=== PATIENT | female | born 1955 | race Caucasian/White ===

== ENCOUNTER → 2017-10-26 17:30 | Outpatient (CLI) | payer OTHER, SELFPAY | PROVIDERS: Family Provider Family Medicine; PCP Family Medicine; Visit Provider Family Medicine | DX: Z12.31 Encounter for screening mammogram for malignant neoplasm of breast (principal) | CPT/HCPCS: 77063; 77067 ==

== ENCOUNTER → 2018-12-08 17:00 | Outpatient (CLI) | payer OTHER, SELFPAY ==
[2018-12-13 13:49] LABS: HPV HC, High Risk Negative (Negative)
== END ==
PROVIDERS: Family Provider Family Medicine; PCP Family Medicine; Visit Provider Family Medicine
DX: Z12.4 Encounter for screening for malignant neoplasm of cervix (principal)
CPT/HCPCS: 87624; 88175; G0145

== ENCOUNTER → 2018-12-20 16:23 | Outpatient (CLI) | payer OTHER, SELFPAY ==
--- NOTE | 2018-12-20 16:29 | BI_ITS ---
BILATERAL DIGITAL MAMMOGRAM Mediolateraloblique and craniocaudal views demonstrate no evidence of dominant parenchymal masses. No cluster of microcalcifications or architectural distortion is seen. No evidence of skin thickening is identified. There has been no significant change since 10/26/2017. Breast Density: The breast tissue is heterogeneously dense, which may obscure small masses. CAD was used to assist in final assessment. IMPRESSION: NORMAL MAMMOGRAM BILATERALLY. FINAL ASSESSMENT: BIRAD 1 (NEGATIVE) YEARLY MAMMOGRAM RECOMMENDED Approximately 10% of breast cancers are not detected by mammography. A normal mammogram should not delay biopsy of a clinically suspicious abnormality. Electronically Signed: Jairo Nieto, at 7:14 EDT Tel , Service support , BI/SCREEN MAMM (CAD) W/TRAVIS ROACH
== END ==
PROVIDERS: Family Provider Family Medicine; PCP Family Medicine; Referring Provider Family Medicine; Visit Provider Family Medicine
DX: Z12.31 Encounter for screening mammogram for malignant neoplasm of breast (principal)
CPT/HCPCS: 77063; 77067

== ENCOUNTER → 2019-01-16 14:19 | Outpatient (CLI) | payer OTHER, SELFPAY ==
[2019-01-16 13:49] VITALS: BMI 32.8
[2019-01-16 14:37] LABS: Hematocrit 43.1 % (37-47); Hemoglobin 13.7 g/dL (12.0-15.0); Mean Corp Hgb Conc 31.8 g/dL (32-36); Mean Corpuscular Hgb 29.3 pg (27.0-32.0); Mean Corpuscular Volume 92.1 fL (81-99); Mean Platelet Vol. 11.3 fl (6.2-12.0); Platelet Count 262 K/mm3 (150-450); RBC Distribution Width CV 12.9 % (11.6-14.6); RBC Distribution Width SD 43.2 fl (35.1-43.9); Red Blood Count 4.68 M/mm3 (4.2-5.4); White Blood Count 11.2 K/mm3 (4.4-11.0)
[2019-01-16 14:48] LABS: Prothrombin Time (Protime)PT. 12.8 SECONDS (11.7-14.9)
[2019-01-16 14:49] LABS: Partial Thromboplast Time 57.7 Seconds (24.1-36.2)
[2019-01-16 14:58] LABS: ALB/GLOB Ratio 0.9 RATIO (0.9-2.4); AST(SGOT) 16 U/L (15-37); Alanine Aminotransfer ALT/SGPT 35 U/L (13-56); Albumin, Serum 3.7 g/dL (3.2-5.0); Alkaline Phosphatase 55 U/L (45-117); Anion Gap 6 (5-15); BUN 16 mg/dL (7-18); BUN/Creat Ratio 22.3 RATIO (10-20); Calcium,Total 9.5 mg/dL (8.5-10.1); Chloride 104 mmol/L (98-107); Creatinine, Serum 0.72 mg/dL (0.55-1.02); EST Glomerular Filtration Rate 88 mL/min (>60); Est Glom Filt Rate - Afr Amer 106 mL/min (>60); Globulin 4.1 g/dL (2.2-4.2); Glucose 88 mg/dL (74-106); Potassium 3.9 mmol/L (3.5-5.1); Protein, Total 7.8 g/dL (6.4-8.2); Sodium Level 140 mmol/L (136-145)
== END ==
PROVIDERS: Family Provider Family Medicine; PCP Family Medicine; Referring Provider Surgery; Visit Provider Surgery
DX: D64.9 Anemia, unspecified (principal)
CPT/HCPCS: 36415; 80053; 85027; 85610; 85730

== ENCOUNTER → 2019-01-17 08:31 | Outpatient (CLI) | payer OTHER, SELFPAY ==
[2019-01-16 13:49] VITALS: BMI 32.8
[2019-01-17 09:10] LABS: Absolute Neutrophil Count 9.5 X10^3/uL (2.0-7.7); Basophil# 0.05 X10^3/uL; Basophil% 0.4 % (0-1); Eosinophil# 0.22 X10^3/uL; Eosinophils% 1.7 % (0-5); Hematocrit 44.8 % (37-47); Hemoglobin 14.2 g/dL (12.0-15.0); Lymphocyte % 16.5 % (19-41); Mean Corp Hgb Conc 31.7 g/dL (32-36); Mean Corpuscular Hgb 29.6 pg (27.0-32.0); Mean Corpuscular Volume 93.5 fL (81-99); Mean Platelet Vol. 11.7 fl (6.2-12.0); Monocyte% 6.3 % (0-10); NRBC Flagged by Analyzer 0 % (0-5); Neutrophil # 9.54 X10^3/uL (2.7-7.7); Neutrophil % 74.8 % (47-70); Platelet Count 258 K/mm3 (150-450); RBC Distribution Width CV 12.5 % (11.6-14.6); RBC Distribution Width SD 43.5 fl (35.1-43.9); Red Blood Count 4.79 M/mm3 (4.2-5.4); White Blood Count 12.8 K/mm3 (4.4-11.0)
[2019-01-17 09:28] LABS: ALB/GLOB Ratio 0.9 RATIO (0.9-2.4); AST(SGOT) 16 U/L (15-37); Alanine Aminotransfer ALT/SGPT 33 U/L (13-56); Albumin, Serum 3.6 g/dL (3.2-5.0); Alkaline Phosphatase 56 U/L (45-117); Anion Gap 6 (5-15); BUN 19 mg/dL (7-18); BUN/Creat Ratio 24.2 RATIO (10-20); Chloride 103 mmol/L (98-107); Cholesterol 181 mg/dL (200); Creatinine, Serum 0.78 mg/dL (0.55-1.02); EST Glomerular Filtration Rate 79 mL/min (>60); Est Glom Filt Rate - Afr Amer 96 mL/min (>60); Globulin 4.1 g/dL (2.2-4.2); Glucose 114 mg/dL (74-106); High Density Lipoprotein 39 mg/dL; Potassium 4.2 mmol/L (3.5-5.1); Protein, Total 7.7 g/dL (6.4-8.2); Sodium Level 140 mmol/L (136-145); Triglycerides 228 mg/dL; Very Low Density Lipoprotein 46 mg/dL (5-40)
== END ==
PROVIDERS: Family Provider Family Medicine; PCP Family Medicine; Referring Provider Family Medicine; Visit Provider Family Medicine
DX: Z00.00 Encounter for general adult medical examination without abnormal findings (principal); F32.9 Major depressive disorder, single episode, unspecified
CPT/HCPCS: 36415; 80053; 80061; 85025

== ENCOUNTER 2019-01-31 06:49 | Day surgery (SDC) | payer OTHER, SELFPAY ==
--- NOTE | 2019-01-16 03:16 | HP_ITS ---
Intake Vital Signs 01/16/19 Height 5 ft 7 in 01/16/19 Weight: 210 lb 01/16/19 Body Mass Index (BMI) 32.8 01/16/19 Blood Pressure 181/91 H 01/16/19 Blood Pressure Location Rt brachial 01/16/19 Blood Pressure Position Sitting 01/16/19 Respiratory Rate 18 Intake Visit Reasons: Rectal Bleeding/Hemorrhoids Tube Lancer Required: No Is patient in pain?: No Allergies Antihistamines - Alkylamine Allergy (Mild, Verified 01/16/19 13:51) Unknown Sulfa (Sulfonamide Antibiotics) Allergy (Mild, Verified 01/16/19 13:51) Other wool Allergy (Mild, Verified 01/16/19 13:51) Other Medications citalopram 20 mg tablet 30 mg PO DAILY tab 01/16/19 [History Confirmed 01/16/19] multivitamin tablet 1 tab PO DAILY 01/16/19 [History Confirmed 01/16/19] vit B12 50 mcg-iodine 75 mcg-mag 100 xn-bqox-eojxorox-herb 193 capsule cap PO cap 01/16/19 [History] PFSH Medical History Depression (Acute) Surgical History H/O thumb surgery (Acute) S/P hemorrhoidectomy (Acute) S/P tubal ligation (Acute) S/p bilateral carpal tunnel release (Acute) Family History Mother Heart disease Father Cancer Social History (Updated 01/16/19 @ 15:16 by Kishan Husain MD) Smoking Status: Former smoker alcohol intake: never HPI HPI HPI: RAKEL MARRERO, is a 63 F who presents to the office today for HPI HPI Surgical H&P: Yes HPI: RAKEL MARRERO, is a 63 F who presents to the office today for surgical consultation regarding excessive ongoing chronic voluminous rectal bleeding. The patient states that in [facility] in 1989 she had a hemorrhoidectomy. She states that ever since that she has had intermittent bouts of severe rectal bleeding sometimes with clots. She states that it is dietary induced but is not specific as to what foods may aggravate her situation. She states that the bleeding is aggravated by straining. Recently she has newly established primary care with Dr. Eileen Riggs. The patient is referred for surgical consultation and anticipated possible need for colonoscopy by Dr. Eileen Riggs and a written copy of my surgical consult recommendations will be returned to her recommendations were for the patient to get laboratory obtained and to pursue a colonoscopy. The patient however has not yet had the blood work obtained. She denies knowingly being anemic. But she states that she likely has not had laboratory obtained for multiple years. She states that when she bleeds it is excessive and that she has clots. She denies lightheadedness or syncope. She had initially hoped to pursue her colonoscopy via open access but with a history of voluminous rectal bleeding an appointment was made. The patient still remains very concerned that is soon as she starts taking the bowel prep that she will have excessive bleeding. She notes that she is not currently bleeding at this moment. ROS General General: No weight change, appetite, fatigue, colon cancer, breast cancer or weakness HEENT HEENT: No difficulty swallowing, eye injury, eye surgery, swollen glands or hoarseness Endo Endocrine: No thyroid disease, diabetes mellitus, thyroid cancer, Hair loss, heat intolerance or cold intolerance Skin Skin: No rash or changing moles Breast Breast: No left breast lump, right breast lump, nipple discharge, breast pain, abnormal mammogram, abnormal US or breast enlargement Musc Musculoskeletal: No back problems, arthritis, rheumatoid arthritis, gout or joint pain Cardio Cardiovascular: No murmur, pacemaker, heart disease, atrial fibrillation, high blood pressure, heart attack, heart stent, palpitations, shortness of breat with exertion or chest pain Psych Psychiatric: Yes depression; no anxiety or hearing voices Resp Respiratory: No shortness of breath, No sleep apnea, No cough, No COPD, No asthma, No emphysema, No wheezing Gastro Gastrointestinal: No abdominal pain, No nausea or vomiting, No diarrhea, No constipation, No blood in stool, No acid reflux, Yes hemorrhoids, No ulcers, No gallbladder problem, No black,tarry stools Jovanni Hematologic: No blood thinners, No blood disorders, No bleeding, No anemia, No blood clots Neuro Neurologic: No system reviewed and no additional complaints, except as docu, No as per HPI, No abnormal walking, No abnormal hearing, No abnormal movements, No abnormal speech, No behavioral changes, No burning sensations, No confusion, No seizure-like activity, No unsteadiness, No dizziness, No localized weakness, No frequent falls, No headache(s), No lack of coordination, No loss of vision, No memory loss, No numbness, No other visual disturbances, No radiating pain, No restless legs, No sensory deficit, No fainting, No tingling, No tremor(s), No weakness, No other Exam Const General: cooperative, healthy appearing, comfortable, no acute distress Nutritional Appearance: overweight Orientation: alert, awake [facility] Head: normal to inspection Chest Chest palpation & inspection: normal inspection of the chest Breast Palpation: No nipple discharge Resp Effort & Inspection: normal respiratory effort Auscultation: clear to auscultation bilaterally Cardio Rate: regular rate Rhythm: regular rhythm Heart Sounds: no murmurs GI Palpation: soft, no hepatosplenomegaly Auscultation: normal bowel sounds Neuro Cognition: normal cognition Extrem General: no calf tenderness bilaterally Psych Affect: normal affect Assessment & Plan Problems 1. Rectal bleeding K62.5 Plan Long-term history of rectal bleeding of undetermined etiology. The patient has not had a colonoscopy for perhaps almost 30 years. She notes bright red blood per rectum and clots. She has not yet pursued her laboratory. She is very concerned that the laxative bowel prep and clear liquids will aggravate her bowels causing excessive bleeding. I do recommend that she pursue laboratory and I recommend from this office a CMP and a CBC and coags. She of course will want to pursue the laboratory ordered per Dr. Eileen Riggs as well. I did briefly discussed with the patient possible hospitalization for observation in order to complete the bowel prep there but I made it clear that the bowel preparation will be a required component of trying to pursue a colonoscopy. Although the patient is relatively convinced that this is a simple post hemorrhoidectomy complication as noted above she has not had a colonoscopy for an extended period of time. I have discussed the technique, benefits, risks, alternatives. She has had an opportunity to ask and have questions answered. At this time we will try a 1 day outpatient clear liquid and routine MiraLAX bowel prep. She will notify me if she has excessive bleeding. She states that she will pursue the recommended laboratory. I appreciate the opportunity of assisting with her surgical care CC: Dr. Eileen Husain M.D., F.A.C.S. Orders Orders: Comprehensive Metabolic Profil Today D64.9 Partial Thromboplast Time Today D64.9 Prothrombin Time w/INR Today D64.9 CBC-Complete Blood Cnt No Diff Today D64.9 Coding Level of Care Code 48070 Diagnoses Rectal bleeding K62.5 01/16/19 1516 <Electronically signed by Kishan dumont MD> Date _ Kishan Husain MD I have re-examined the patient. There are no clinical changes since date of exam.
[2019-01-16 13:49] VITALS: BMI 32.8
[2019-01-31 07:10] VITALS: BP 167/97; PULSE 67; RESP 14; TEMP 36; O2SAT 98; BMI 31.7
--- NOTE | 2019-01-31 08:32 | OP.COLON_ITS ---
Patient Name: Diana Matt Procedure Date: 01/31/2019 8:03 AM Date of : 1955 Age: 63 Procedure: Colonoscopy Indications: Rectal bleeding Providers: Kishan Husain MD Referring MD: Eileen Riggs Medicines: See the Anesthesia note for documentation of the administered medications Patient Profile: Last Colonoscopy: more than 10 years ago. Complications: No immediate complications. Procedure: Pre-Anesthesia Assessment: - Prior to the procedure, a History and Physical was performed, and patient medications and allergies were reviewed. The patient's tolerance of previous anesthesia was also reviewed. The risks and benefits of the procedure and the sedation options and risks were discussed with the patient. All questions were answered, and informed consent was obtained. Prior Anticoagulants: The patient has taken no previous anticoagulant or antiplatelet agents. ASA Grade Assessment: II - A patient with mild systemic disease. After reviewing the risks and benefits, the patient was deemed in satisfactory condition to undergo the procedure. After I obtained informed consent, the scope was passed under direct vision. Throughout the procedure, the patient's blood pressure, pulse, and oxygen saturations were monitored continuously. The pediatric colonoscope was introduced through the anus and advanced to the cecum, identified by appendiceal orifice and ileocecal valve. The colonoscopy was performed without difficulty. The patient tolerated the procedure well. The quality of the bowel preparation was good. The ileocecal valve was photographed. Scope In: 8:12:23 AM Scope Withdrawal Time 0 hours 6 minutes 43 seconds Scope Out: 8:26:07 AM Total Procedure Duration Time 0 hours 13 minutes 44 seconds Findings: The digital rectal exam findings include non-thrombosed external hemorrhoids, thrombosed internal hemorrhoids and internal hemorrhoids that do not return to the anal canal, thus continuously prolapsed (Grade IV). Multiple diverticula were found in the entire colon. Impression: - Non-thrombosed external hemorrhoids, thrombosed internal hemorrhoids and internal hemorrhoids that do not return to the anal canal, thus continuously prolapsed (Grade IV) found on digital rectal exam. - Diverticulosis in the entire examined colon. - No specimens collected. Recommendation: - Discharge patient to home. - Resume previous diet. - Continue present medications. - Return to my office in 1 week. - Repeat colonoscopy in 10 years for screening purposes. Office appt to discuss hemorrhoids as source of rectal bleeding and recommnedations for surgical hemorrhoidectomy Procedure Code(s): --- Professional --- 20808, Colonoscopy, flexible; diagnostic, including collection of specimen(s) by brushing or washing, when performed (separate procedure) Diagnosis Code(s): --- Professional --- K64.3, Fourth degree hemorrhoids K64.5, Perianal venous thrombosis K62.5, Hemorrhage of anus and rectum K57.30, Diverticulosis of large intestine without perforation or abscess without bleeding CPT copyright 2017 [employer]. All rights reserved. The codes documented in this report are preliminary and upon clinical psychology professor review may be revised to meet current compliance requirements. Kishan Husain MD 01/31/2019 8:31:20 AM This report has been signed electronically. Number of Addenda: 0 Note Initiated On: 01/31/2019 8:03 AM
[2019-01-31 08:35] VITALS: BP 134/74; BP 167/97; PULSE 71; RESP 16; TEMP 37.3; O2SAT 92
[2019-01-31 08:40] VITALS: BP 128/105; BP 167/97; PULSE 74; RESP 16; O2SAT 96
[2019-01-31 08:45] VITALS: BP 150/85; BP 167/97; PULSE 75; RESP 16; O2SAT 95
[2019-01-31 08:50] VITALS: BP 131/72; BP 167/97; PULSE 75; RESP 16; TEMP 37.1; O2SAT 97
[2019-01-31 08:55] VITALS: BP 167/97
== END 2019-01-31 09:04 | disposition home or self-care (01) ==
LOC: EN 06:51 → AC 06:52
PROVIDERS: Family Provider Family Medicine; PCP Family Medicine; Referring Provider Family Medicine; Visit Provider Surgery
PROC: 0DJD8ZZ Inspection of Lower Intestinal Tract, Via Natural or Artificial Opening Endoscopic (ICD-10-PCS; CPT 45378; principal; 2019-01-31 07:55)
DX: K64.3 Fourth degree hemorrhoids (principal); K64.5 Perianal venous thrombosis; K57.30 Diverticulosis of large intestine without perforation or abscess without bleeding; F32.9 Major depressive disorder, single episode, unspecified; E66.3 Overweight; Z68.31 Body mass index [BMI] 31.0-31.9, adult; Z78.0 Asymptomatic menopausal state; Z88.2 Allergy status to sulfonamides; Z87.891 Personal history of nicotine dependence
CPT/HCPCS: 45378; J7120; J2405

== ENCOUNTER 2019-04-24 08:13 | Day surgery (SDC) | payer OTHER, SELFPAY ==
[2019-02-14 15:04] VITALS: BMI 31.7
--- NOTE | 2019-04-19 04:32 | HP_ITS ---
Intake Vital Signs 04/19/19 Height 5 ft 7 in 04/19/19 Weight: 205 lb 04/19/19 BMI 32.1 04/19/19 BP 146/89 H 04/19/19 Blood Pressure Location Rt brachial 04/19/19 Position Sitting 04/19/19 Respiration 16 04/19/19 Pulse 78 04/19/19 Pulse Source Monitor 04/19/19 Temp 98.5 F 04/19/19 Temp Source Oral 04/19/19 Pulse Oximetry (%) 97 04/19/19 Oxygen Delivery Method room air Intake Visit Reasons: update h&p hemorrhoidectomy 2-10 Chief Complaint: F/U C-Scope 01/31/19 Allergies Antihistamines - Alkylamine Allergy (Mild, Verified 04/17/19 08:49) Unknown Sulfa (Sulfonamide Antibiotics) Allergy (Mild, Verified 04/17/19 08:49) Other wool Allergy (Mild, Verified 04/17/19 08:49) Other [facility] Medical History Bleeding hemorrhoids (Acute) Depression (Acute) Hemorrhoids (Acute) Surgical History H/O thumb surgery (Acute) S/P hemorrhoidectomy (Acute) S/P tubal ligation (Acute) S/p bilateral carpal tunnel release (Acute) Status post colonoscopy (Acute ~01/31/19) Family History Mother Heart disease Father Cancer Social History (Updated 04/19/19 @ 16:32 by Kennedi Hammond PA-C) Smoking Status: Never smoker alcohol intake: never HPI HPI HPI: RAKEL MARRERO, is a 64 F who presents to the office today for HPI HPI Surgical H&P: Yes HPI: RAKEL MARRERO, is a 64 F who presents to the office today for an update history and physical for an upcoming procedure. Patient denies recent hospitalizations or illnesses. She denies previous complications with anesthesia. She denies previous cardiac and pulmonary history. She is not currently having any rectal bleeding. Patient's previous history per Dr. Husain: RAKEL MARRERO, is a 63 F who presents to the office today for surgical consultation regarding excessive ongoing chronic voluminous rectal bleeding. The patient states that in [facility] in 1989 she had a hemorrhoidectomy. She states that ever since that she has had intermittent bouts of severe rectal bleeding sometimes with clots. She states that it is dietary induced but is not specific as to what foods may aggravate her situation. She states that the bleeding is aggravated by straining. Recently she has newly established primary care with Dr. Eileen Riggs. The patient is referred for surgical consultation and anticipated possible need for colonoscopy by Dr. Eileen Riggs and a written copy of my surgical consult recommendations will be returned to her recommendations were for the patient to get laboratory obtained and to pursue a colonoscopy. The patient however has not yet had the blood work obtained. She denies knowingly being anemic. But she states that she likely has not had laboratory obtained for multiple years. She states that when she bleeds it is excessive and that she has clots. She denies lightheadedness or syncope. She had initially hoped to pursue her colonoscopy via open access but with a history of voluminous rectal bleeding an appointment was made. The patient still remains very concerned that is soon as she starts taking the bowel prep that she will have excessive bleeding. She notes that she is not currently bleeding at this moment. ROS General General: No weight change, appetite, fatigue, colon cancer, breast cancer or weakness HEENT HEENT: No difficulty swallowing, eye injury, eye surgery, swollen glands or hoarseness Endo Endocrine: No thyroid disease, diabetes mellitus, thyroid cancer, Hair loss, heat intolerance or cold intolerance Skin Skin: No rash or changing moles Breast Breast: No left breast lump, right breast lump, nipple discharge, breast pain, abnormal mammogram, abnormal US or breast enlargement Musc Musculoskeletal: No back problems, arthritis, rheumatoid arthritis, gout or joint pain Cardio Cardiovascular: No murmur, pacemaker, heart disease, atrial fibrillation, high blood pressure, heart attack, heart stent, palpitations, shortness of breat with exertion or chest pain Psych Psychiatric: Yes depression; no anxiety or hearing voices Resp Respiratory: No shortness of breath, No sleep apnea, No cough, No COPD, No asthma, No emphysema, No wheezing Gastro Gastrointestinal: No abdominal pain, No nausea or vomiting, No diarrhea, No constipation, No blood in stool, No acid reflux, Yes hemorrhoids, No ulcers, No gallbladder problem, No black,tarry stools Jovanni Hematologic: No blood thinners, No blood disorders, No bleeding, No anemia, No blood clots Neuro Neurologic: No weakness Exam Const General: cooperative, healthy appearing, comfortable, no acute distress HENMT Head: normal to inspection Eyes General: appearance normal, both eyes and all related structures Neck Neck: normal visual inspection Neck mass: No Chest Breast Palpation: No nipple discharge Resp Effort & Inspection: normal respiratory effort Auscultation: clear to auscultation bilaterally Cardio Rate: regular rate Rhythm: regular rhythm Heart Sounds: no murmurs GI Inspection: normal to inspection Palpation: soft Auscultation: normal bowel sounds Skin General: no rashes or lesions noted Neuro General: no focal motor deficits, CN's II-XI intact bilaterally Extrem General: normal to inspection Psych Appearance: grossly normal Affect: normal affect Assessment & Plan Problems 1. Bleeding hemorrhoids K64.[address] Husain will plan to perform a hemorrhoidectomy. Procedure details, risks and benefits were reviewed with the patient. Patient has had the opportunity to ask and have questions answered. Patient verbally understands and agrees with the plan. Patient will perform 1 day of clear liquids and a bottle of Magnesium Citrate that evening prior to the procedure. Coding Level of Care Code No Charge Diagnoses Bleeding hemorrhoids K64.9 Comment Update H&P 04/19/19 [id number] <Electronically signed by Kennedi gibbons PA-C> Date _ Kennedi Hammond PA-C
[2019-04-19 10:37] VITALS: BMI 31.7
--- NOTE | 2019-04-19 11:01 | EKG12_ITS ---
Test Reason : PREOP Blood Pressure : / mmHG Vent. Rate : 076 BPM Atrial Rate : 076 BPM P-R Int : 142 ms QRS Dur : 078 ms QT Int : 402 ms P-R-T Axes : 049 013 030 degrees QTc Int : 452 ms Normal sinus rhythm Normal ECG Confirmed by LATONIA AVITIA ([id number]), editor magazine JOSÉ LUIS BEARD ([id number]) on 04/21/2019 9:50:29 AM Referred By: Kishan Husain Confirmed By:LATONIA AVITIA
[2019-04-19 11:38] LABS: Hematocrit 42.1 % (37-47); Hemoglobin 13.2 g/dL (12.0-15.0); Mean Corp Hgb Conc 31.4 g/dL (32-36); Mean Corpuscular Hgb 28.4 pg (27.0-32.0); Mean Corpuscular Volume 90.5 fL (81-99); Mean Platelet Vol. 11.3 fl (6.2-12.0); Platelet Count 301 K/mm3 (150-450); RBC Distribution Width CV 12.8 % (11.6-14.6); RBC Distribution Width SD 42.5 fl (35.1-43.9); Red Blood Count 4.65 M/mm3 (4.2-5.4); White Blood Count 8.2 K/mm3 (4.4-11.0)
[2019-04-19 12:49] LABS: Anion Gap 2 (5-15); BUN 16 mg/dL (7-18); BUN/Creat Ratio 21.1 RATIO (10-20); Calcium,Total 9.9 mg/dL (8.5-10.1); Chloride 104 mmol/L (98-107); Creatinine, Serum 0.76 mg/dL (0.55-1.20); EST Glomerular Filtration Rate 82 mL/min (>60); Est Glom Filt Rate - Afr Amer 99 mL/min (>60); Glucose 87 mg/dL (70-110); Potassium 3.8 mmol/L (3.5-5.1); Sodium Level 140 mmol/L (136-145)
[2019-04-24] VITALS (7 sets, daily range): BP systolic 130–147; BP diastolic 79–94; PULSE 60–74; RESP 16; TEMP 36.2–36.9; O2SAT 92–96; BMI 32.6
[2019-04-24] MEDS: Lactated Ringers 1,000 ML 100 ML IV (08:48)
--- NOTE | 2019-04-24 10:30 | FIST_PTH ---
PATIENT: RAKEL MARRERO LOC: [facility] [place] U#:[id number] AGE/SX: 64/F ROOM: RE04/24/[address]: Dr. Kishan Husain MD : 1955 BED: DIS: 04/24/2019 SPEC #: [id number] RECD: 04/24/19 15:00 STATUS: QIANA HANCOCK #: [id number] DAX: 04/24/19 10:[address]: Kishan Husain DEPT: SURGICAL PATHOLOGY RECD BY: Richa Morales ENTERED: 04/25/19 10:15 SP TYPE: Fistula OTHR DR: Dr. Eileen Riggs MD Tissues: A - Anal region B - HEMORRHOIDS Procedures: Surgery Specimen Level III HEADER OPERATION: Hemorrhoidectomy PRE-OP DIAGNOSIS: Bleeding hemorrhoids K64.9 TISSUE SUBMITTED: A - Posterior fistula, B - Hemorrhoids MICROSCOPIC DIAGNOSIS A. Posterior fistula, biopsy: Fragments of squamous mucosa and submucosa with mild chronic inflammation and hyperkeratosis. B. Hemorrhoids, hemorrhoidectomy: Submucosal vascular ectasia and thrombosis consistent with hemorrhoids. AM:silvia 04/26/19 MICROSCOPIC DESCRIPTION Slides are reviewed. GROSS DESCRIPTION A - Received in fixative is one container labeled with the patient's name and designated posterior fistula. The specimen consists of two pieces of miranda soft tissue that in aggregate measure 1.5 x 0.7 x 0.5 cm. The larger piece is bisected. The entire specimen is submitted in one cassette. B - Received in fixative is one container labeled with the patient's name and designated hemorrhoids. The specimen consists of three variable sized pieces of congested mucosal tissue that in aggregate measure 3.5 x 3 x 0.5 cm. Sections reveal congested and hemorrhagic cut surfaces. [employer] sections are submitted in one cassette. / SJ:silvia 04/25/19 TC:5 CPT: 02228 x2
--- NOTE | 2019-04-24 11:24 | PCM.HP.BLA ---
Problem List (1) Bleeding hemorrhoids Status: Acute History and Physical Date of Admission: 04/24/19 Intake Visit Reasons: update h&p hemorrhoidectomy 2-10 Chief Complaint: F/U C-Scope 01/31/19 Allergies Antihistamines - Alkylamine Allergy (Mild, Verified 04/17/19 08:49) Unknown Sulfa (Sulfonamide Antibiotics) Allergy (Mild, Verified 04/17/19 08:49) Other wool Allergy (Mild, Verified 04/17/19 08:49) Other [facility] Medical History Bleeding hemorrhoids (Acute) Depression (Acute) Hemorrhoids (Acute) Surgical History H/O thumb surgery (Acute) S/P hemorrhoidectomy (Acute) S/P tubal ligation (Acute) S/p bilateral carpal tunnel release (Acute) Status post colonoscopy (Acute ~01/31/19) Family History Mother Heart disease Father Cancer Social History (Updated 04/19/19 @ 16:32 by Kennedi Hammond PA-C) Smoking Status: Never smoker alcohol intake: never HPI HPI HPI: RAKEL MARRERO, is a 64 F who presents to the office today for HPI HPI Surgical H&P: Yes HPI: RAKEL MARRERO, is a 64 F who presents to the office today for an update history and physical for an upcoming procedure. Patient denies recent hospitalizations or illnesses. She denies previous complications with anesthesia. She denies previous cardiac and pulmonary history. She is not currently having any rectal bleeding. Patient's previous history per Dr. Husain: RAKEL MARRERO, is a 63 F who presents to the office today for surgical consultation regarding excessive ongoing chronic voluminous rectal bleeding. The patient states that in [facility] in 1989 she had a hemorrhoidectomy. She states that ever since that she has had intermittent bouts of severe rectal bleeding sometimes with clots. She states that it is dietary induced but is not specific as to what foods may aggravate her situation. She states that the bleeding is aggravated by straining. Recently she has newly established primary care with Dr. Eileen Riggs. The patient is referred for surgical consultation and anticipated possible need for colonoscopy by Dr. Eileen Riggs and a written copy of my surgical consult recommendations will be returned to her recommendations were for the patient to get laboratory obtained and to pursue a colonoscopy. The patient however has not yet had the blood work obtained. She denies knowingly being anemic. But she states that she likely has not had laboratory obtained for multiple years. She states that when she bleeds it is excessive and that she has clots. She denies lightheadedness or syncope. She had initially hoped to pursue her colonoscopy via open access but with a history of voluminous rectal bleeding an appointment was made. The patient still remains very concerned that is soon as she starts taking the bowel prep that she will have excessive bleeding. She notes that she is not currently bleeding at this moment. ROS General General: No weight change, appetite, fatigue, colon cancer, breast cancer or weakness HEENT HEENT: No difficulty swallowing, eye injury, eye surgery, swollen glands or hoarseness Endo Endocrine: No thyroid disease, diabetes mellitus, thyroid cancer, Hair loss, heat intolerance or cold intolerance Skin Skin: No rash or changing moles Breast Breast: No left breast lump, right breast lump, nipple discharge, breast pain, abnormal mammogram, abnormal US or breast enlargement Musc Musculoskeletal: No back problems, arthritis, rheumatoid arthritis, gout or joint pain Cardio Cardiovascular: No murmur, pacemaker, heart disease, atrial fibrillation, high blood pressure, heart attack, heart stent, palpitations, shortness of breat with exertion or chest pain Psych Psychiatric: Yes depression; no anxiety or hearing voices Resp Respiratory: No shortness of breath, No sleep apnea, No cough, No COPD, No asthma, No emphysema, No wheezing Gastro Gastrointestinal: No abdominal pain, No nausea or vomiting, No diarrhea, No constipation, No blood in stool, No acid reflux, Yes hemorrhoids, No ulcers, No gallbladder problem, No black,tarry stools Jovanni Hematologic: No blood thinners, No blood disorders, No bleeding, No anemia, No blood clots Neuro Neurologic: No weakness Exam Const General: cooperative, healthy appearing, comfortable, no acute distress [facility] Head: normal to inspection Eyes General: appearance normal, both eyes and all related structures Neck Neck: normal visual inspection Neck mass: No Chest Breast Palpation: No nipple discharge Resp Effort & Inspection: normal respiratory effort Auscultation: clear to auscultation bilaterally Cardio Rate: regular rate Rhythm: regular rhythm Heart Sounds: no murmurs GI Inspection: normal to inspection Palpation: soft Auscultation: normal bowel sounds Skin General: no rashes or lesions noted Neuro General: no focal motor deficits, CN's II-XI intact bilaterally Extrem General: normal to inspection Psych Appearance: grossly normal Affect: normal affect Assessment & Plan Problems 1. Bleeding hemorrhoids K64.[address] Husain will plan to perform a hemorrhoidectomy. Procedure details, risks and benefits were reviewed with the patient. Patient has had the opportunity to ask and have questions answered. Patient verbally understands and agrees with the plan. Patient will perform 1 day of clear liquids and a bottle of Magnesium Citrate that evening prior to the procedure. Coding Level of Care Code No Charge Diagnoses Bleeding hemorrhoids K64.9 Comment Update H&P 04/19/19 1632 <Electronically signed by Kennedi Hammond PA-C> Date Kennedi Hammond PA-C [facility] Medical Records Department [address] [place] [address] Colonoscopy Report MR#: [id number] Acct: [id number] Name: RAKEL MARRERO Rep #: [id number] : 1955 63 From: Kishan Husain MD PCP: Eileen Riggs MD Status: [facility] Patient Name: Rakel Marrero Procedure Date: 01/31/2019 8:03 AM Date of : 1955 Age: 63 Procedure: Colonoscopy Indications: Rectal bleeding Providers: Kishan Husain MD Referring MD: Eileen Riggs Medicines: See the Anesthesia note for documentation of the administered medications Patient Profile: Last Colonoscopy: more than 10 years ago. Complications: No immediate complications. Procedure: Pre-Anesthesia Assessment: - Prior to the procedure, a History and Physical was performed, and patient medications and allergies were reviewed. The patient's tolerance of previous anesthesia was also reviewed. The risks and benefits of the procedure and the sedation options and risks were discussed with the patient. All questions were answered, and informed consent was obtained. Prior Anticoagulants: The patient has taken no previous anticoagulant or antiplatelet agents. ASA Grade Assessment: II - A patient with mild systemic disease. After reviewing the risks and benefits, the patient was deemed in satisfactory condition to undergo the procedure. After I obtained informed consent, the scope was passed under direct vision. Throughout the procedure, the patient's blood pressure, pulse, and oxygen saturations were monitored continuously. The pediatric colonoscope was introduced through the anus and advanced to the cecum, identified by appendiceal orifice and ileocecal valve. The colonoscopy was performed without difficulty. The patient tolerated the procedure well. The quality of the bowel preparation was good. The ileocecal valve was photographed. Scope In: 8:12:23 AM Scope Withdrawal Time 0 hours 6 minutes 43 seconds Scope Out: 8:26:07 AM Total Procedure Duration Time 0 hours 13 minutes 44 seconds Findings: The digital rectal exam findings include non-thrombosed external hemorrhoids, thrombosed internal hemorrhoids and internal hemorrhoids that do not return to the anal canal, thus continuously prolapsed (Grade IV). Multiple diverticula were found in the entire colon. Impression: - Non-thrombosed external hemorrhoids, thrombosed internal hemorrhoids and internal hemorrhoids that do not return to the anal canal, thus continuously prolapsed (Grade IV) found on digital rectal exam. - Diverticulosis in the entire examined colon. - No specimens collected. Recommendation: - Discharge patient to home. - Resume previous diet. - Continue present medications. - Return to my office in 1 week. - Repeat colonoscopy in 10 years for screening purposes. Office appt to discuss hemorrhoids as source of rectal bleeding and recommnedations for surgical hemorrhoidectomy Procedure Code(s): --- Professional --- 85339, Colonoscopy, flexible; diagnostic, including collection of specimen(s) by brushing or washing, when performed (separate procedure) Diagnosis Code(s): --- Professional --- K64.3, Fourth degree hemorrhoids K64.5, Perianal venous thrombosis K62.5, Hemorrhage of anus and rectum K57.30, Diverticulosis of large intestine without perforation or abscess without bleeding CPT copyright 2017 [employer]. All rights reserved. The codes documented in this report are preliminary and upon clinical nurse educator review may be revised to meet current compliance requirements. Kishan Husain MD 01/31/2019 8:31:20 AM This report has been signed electronically. Number of Addenda: 0 Note Initiated On: 01/31/2019 8:03 AM 01/31/19 0831 Date Kishan Husain MD Insert H&P with the colonoscopy data as noted above. I anticipate proceeding with a traditional hemorrhoidectomy. The patient is aware of the technique, benefit, risks, alternatives. We will proceed at her discretion. Kishan Husain M.D., F.A.C.S.
--- NOTE | 2019-04-24 11:49 | DCINST_ITS ---
Discharge Diet: No Restrictions Discharge Activity: Return to Normal Activity, May Not Drive - while you are taking narcotic pain medications. Do not drive, work with heavy equipment or sign legal documents for 24 hours after your surgery., May Shower, May Take a Tub Bath Additional Dressing/Incision Instructions:: You may remove the Vaseline gauze tomorrow morning. You may use female hygiene pads for any drainage. I recommend taking a daily fiber supplement a tablespoon in water or fluid daily. I encourage taking mineral oil 30 cc or 1 ounce in juice or fluid daily. Take in plenty of fluids and initiate a soft or bland diet until bowel function returns to more normal. Avoid constipating foods like cheese. You may utilize [id number] pain medicine like acetaminophen or Tylenol or Advil or Aleve or Motrin or ibuprofen per package instructions. Allergies/Adverse Reactions: Allergies Antihistamines - Alkylamine Allergy (Mild, Verified 04/24/19 08:33) Unknown Sulfa (Sulfonamide Antibiotics) Allergy (Mild, Verified 04/24/19 08:33) Other wool Allergy (Mild, Verified 04/24/19 08:33) Other Medications to take at Discharge citalopram 20 mg tablet 30 mg PO DAILY tab 01/16/19 multivitamin 1 tab PO DAILY 01/16/19 Cyanocobalamin (Vitamin B-12) [Vitamin B12] 5,000 mcg PO DAILY 04/17/19 Hydrocodone Bitart/Apap 5-325 [[place] 5MG-325MG] 1 tablet PO Q6H PRN PRN 4 Days #15 tablet 04/24/19 Hydrocortisone [Proctocream-Hc] 30 gm NC Q4H PRN #1 cream..g. 04/24/19 Metronidazole 250 mg PO TID #15 tab 04/24/19 The following prescriptions were given: Metronidazole 250 mg PO TID #15 tab Transmission Status: Pending to [id number] Hydrocodone Bitart/Apap 5-325 [[place] 5MG-325MG] 1 tablet PO Q6H PRN PRN 4 Days #15 tablet PRN Reason: Pain Transmission Status: Received by [id number] Hydrocortisone [Proctocream-Hc] 30 gm NC Q4H PRN #1 cream..g. PRN Reason: pain Transmission Status: Pending to [id number] Primary Care Physician: Eileen Riggs MD [Primary Care Provider] - Test Results: Test results from this visit will be discussed in further detail at your follow- up appointment, if applicable. Please Follow Up With: Kishan Husain MD - [phone] When: Plan to have a follow up approximately 3 weeks after surgery.
[2019-04-24] MEDS: Lubricating Jelly 60 GM Tube 30 GM TOPICAL (11:51)
[2019-04-24] MEDS: BUPIVACAINE LIPOSOME/PF 20 ML VIAL OPERA.SITE (12:57)
[2019-04-24] MEDS: Bupivacaine Mpf 0.5% 30 ML VIAL (12:59)
[2019-04-24] MEDS: Dibucaine 30 GM Tube 1 APPLIC (12:59)
--- NOTE | 2019-04-24 13:01 | PCM.OPRPT ---
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 64-year-old female taken the operating placed on the table jackknife position. She underwent monitored incision care and local anesthetic. Cefotetan 2 g were given intravenously. The perianal area was prepped with Betadine. 0.5% Marcaine 30 cc was mixed with 20 cc of Exparel and used as a local anesthetic. The perianal tissue was anesthetized. Inspection revealed somewhat of an anal stricturing. 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 There was bulky hemorrhoidal tissue right 2 o'clock position right 4 o'clock position left 9 o'clock position. Anal speculum was inserted. Apical sutures of 2-0 chromic were placed. Sharp incision and then harmonic scalpel dissection was performed excising the internal hemorrhoidal disease. Quite significant bleeding occurred despite the harmonic scalpel. The mucosa was approximated with a running locking 2-0 chromic and were additionally needed simple sutures in [id number] sutures of 0 chromic were additionally used. The 3 wedges of hemorrhoidal tissue was completely excised. Anal area appeared to have the same amount of lumen is at the initiation of the procedure. Hemostasis was intact. Vaseline gauze soaked with dibucaine was inserted. Cover dressings applied. The posterior anal tissue was submitted separately. The remainder of the hemorrhoidal tissue was submitted as one. Sponge and instrument and needle counts reported to be correct. Specimens hemorrhoids and possible posterior fistula. Drains include the Vaseline gauze. Blood loss 150 cc. She was taken to the recovery room satisfactory condition, no apparent complication Kishan Husain M.D., F.A.C.S. Type of Anesthesia:: Local MAC Anesthesiologist: Kellee Gustafson
== END 2019-04-24 15:43 | disposition home or self-care (01) ==
LOC: SDC 08:14 → AC 08:15
PROVIDERS: PCP Family Medicine; Referring Provider Surgery; Visit Provider Surgery
PROC: (CPT 46260; principal; 2019-04-24 10:15)
DX: K64.8 Other hemorrhoids (principal); K64.5 Perianal venous thrombosis; K64.4 Residual hemorrhoidal skin tags; K62.5 Hemorrhage of anus and rectum; F32.9 Major depressive disorder, single episode, unspecified; Z79.899 Other long term (current) drug therapy; Z78.0 Asymptomatic menopausal state; Z88.2 Allergy status to sulfonamides; Z85.828 Personal history of other malignant neoplasm of skin
CPT/HCPCS: 00902; 46260; 36415; 80048; 85027; 88304; 93005; J7120; J2405

== ENCOUNTER → 2020-04-12 08:35 | Outpatient (CLI) | payer BC, SELFPAY ==
[2019-04-24 08:37] VITALS: BMI 32.6
--- NOTE | 2020-04-12 08:39 | BI_ITS ---
MAMMOGRAPHY - BILATERAL SCREENING REASON FOR EXAM: Female, 64 years old. Routine annual screening examination. PERTINENT HISTORY: Non-contributory. TECHNIQUE: Digital bilateral breast travis (3D mammographic acquisition) in the CC and MLO projections. 2-D mediolateral oblique (MLO) and craniocaudad (CC) views of both breasts were obtained. CAD: Full Field Digital Mammography with Computer Added Detection was performed. COMPARISON: Comparison is made with prior study dated 12/20/2018 and 10/26/2017. FINDINGS: Breast Composition: The breasts are heterogeneously dense, which may obscure small masses. There are no dominant masses or suspicious calcifications. No other significant abnormalities are identified. There has been no significant change since the prior study. BI/SCRN MAMM (CAD)W/TRAVIS BILAT IMPRESSION: Stable bilateral screening mammogram. Yearly follow-up mammogram recommended. (A) ASSESSMENT CATEGORY: BIRADS Category 1: Negative. A letter regarding these results will be sent to the patient by the facility within 30 days. Approximately 10% of breast cancers are not detected by mammography. A normal mammogram should not delay biopsy of a clinically suspicious abnormality. [id number] Electronically Signed: Damien Hedrick MD at 9:43 EST , Service support ,
== END ==
PROVIDERS: PCP Family Medicine; Referring Provider Family Medicine; Visit Provider Family Medicine
DX: Z12.31 Encounter for screening mammogram for malignant neoplasm of breast (principal)
CPT/HCPCS: 77063; 77067

== ENCOUNTER 2020-05-28 15:36 | Outpatient (RCR) | payer BC, SELFPAY ==
[2019-04-24 08:37] VITALS: BMI 32.6
[2020-05-28] MEDS: COVID-19 VACC, MRNA(PFIZER)/PF 30 MCG/0.3 ML SYRINGE IM (08:49)
[2020-06-18] MEDS: COVID-19 VACC, MRNA(PFIZER)/PF 30 MCG/0.3 ML SYRINGE IM (08:28)
== END 2020-05-28 23:59 ==
LOC: IMMUN 15:36
PROVIDERS: PCP Family Medicine; Referring Provider Family Medicine; Visit Provider Family Medicine
DX: Z23 Encounter for immunization (principal)
CPT/HCPCS: 0001A; 0002A; 91300

== ENCOUNTER 2021-04-30 09:14 | Outpatient (CLI) | payer BC, SELFPAY ==
--- NOTE | 2021-04-30 09:17 | BI_ITS ---
MAMMOGRAPHY - BILATERAL SCREENING REASON FOR EXAM: Female, 66 years old. Routine annual screening examination. PERTINENT HISTORY: Non-contributory. TECHNIQUE: Digital bilateral breast travis (3D mammographic acquisition) in the CC and MLO projections. 2-D mediolateral oblique (MLO) and craniocaudad (CC) views of both breasts were obtained. CAD: Full Field Digital Mammography with Computer Added Detection was performed. COMPARISON: Comparison is made with prior study dated 12/11/2020 and 12/20/2018. FINDINGS: Breast Composition: The breasts are heterogeneously dense, which may obscure small masses. There are no dominant masses or suspicious calcifications. No other significant abnormalities are identified. There has been no significant change since the prior study. BI/SCRN MAMM (CAD)W/TRAVIS BILAT IMPRESSION: Stable bilateral screening mammogram. Yearly follow-up mammogram recommended. (A) ASSESSMENT CATEGORY: BIRADS Category 1: Negative. A letter regarding these results will be sent to the patient by the facility within 30 days. Approximately 10% of breast cancers are not detected by mammography. A normal mammogram should not delay biopsy of a clinically suspicious abnormality. [id number] Electronically Signed: Damien Hedrick MD at 10:53 EST ,
== END 2021-04-30 23:59 | disposition home or self-care (01) ==
LOC: OPBI 09:15
PROVIDERS: PCP Family Medicine; Referring Provider Family Medicine; Visit Provider Family Medicine
DX: Z12.31 Encounter for screening mammogram for malignant neoplasm of breast (principal)
CPT/HCPCS: 77063; 77067

== ENCOUNTER → 2022-04-07 | Outpatient (CLI) | payer MEDICARE, SELFPAY ==
--- NOTE | 2022-04-07 13:58 | BD_ITS ---
STUDY: DUAL ENERGY X-RAY ABSORPTIOMETRY / DXA REASON FOR EXAM: Female, 66 years old. [id number] TECHNIQUE: Bone Mineral Density (BMD) measurements of lumbar spine and bilateral hips were obtained. COMPARISON: None. FINDINGS: Lumbar Spine (L1-L4): g/cm2 (0.988) / T-score (-0.5) / Z-score (1.2) Findings are suggestive of normal bone density with a low fracture risk. Left Femur Total: g/cm2 (1.083) / T-score (1.2) / Z-score (2.4) Left Femoral Neck: g/cm2 (0.904) / T-score (0.5) / Z-score (2.0) Right Femur Total: g/cm2 (1.123) / T-score (1.5) / Z-score (2.7) Right Femoral Neck: g/cm2 (0.929) / T-score (0.7) / Z-score (2.2) BD/Dexa Bone Density Study IMPRESSION: The patient is considered normal as outlined below according to World [employer] Organization (WHO) criteria with a low fracture risk. Reference Information: The T-score is the number of standard deviations above or below the standard which is normal for young adults at their peak bone mineral density. The World Health Organization (WHO) interprets the T-scores as follows: Above -1 Normal bone density Between -1 and -2.5 Osteopenia Equal to / or below -2.5 Osteoporosis As a practical clinical guideline, osteopenia may be graded as follows: Mild -1 through -1.5 Moderate -1.6 through -2.0 Severe -2.1 through -2.4 The Z-score is the number of standard deviations above or below age-matched controls. A Z-score of less than -1.5 would be considered abnormal. References: 1. NIH Osteoporosis and Related Bone Diseases www osteo.org 2. International Society for Clinical Densitometry www iscd.org 3. National Osteoporosis Foundation www nof.org Electronically Signed: Damien Hedrick MD at 8:37 EST ,
== END | disposition home or self-care (01) ==
PROVIDERS: PCP Family Medicine; Visit Provider Internal Medicine
DX: Z78.0 Asymptomatic menopausal state (principal)
CPT/HCPCS: 77080

== ENCOUNTER → 2022-06-02 | Outpatient (CLI) | payer MEDICARE, SELFPAY ==
--- NOTE | 2022-06-02 09:41 | BI_ITS ---
MAMMOGRAPHY - BILATERAL SCREENING REASON FOR EXAM: Female, 67 years old. Routine annual screening examination. PERTINENT HISTORY: Non-contributory. TECHNIQUE: Digital bilateral breast travis (3D mammographic acquisition) in the CC and MLO projections. 2-D mediolateral oblique (MLO) and craniocaudad (CC) views of both breasts were obtained. CAD: Full Field Digital Mammography with Computer Added Detection was performed. COMPARISON: Comparison is made with prior study dated April 30, 2021 and April 12, 2020. FINDINGS: Breast Composition: The breasts are heterogeneously dense, which may obscure small masses. There are no dominant masses or suspicious calcifications. No other significant abnormalities are identified. There has been no significant change since the prior study. BI/SCRN MAMM (CAD)W/TRAVIS BILAT IMPRESSION: Stable bilateral screening mammogram. Yearly follow-up mammogram recommended. (A) ASSESSMENT CATEGORY: BIRADS Category 1: Negative. A letter regarding these results will be sent to the patient by the facility within 30 days. Approximately 10% of breast cancers are not detected by mammography. A normal mammogram should not delay biopsy of a clinically suspicious abnormality. [id number] Electronically Signed: Damien Hedrick MD at 10:42 EDT ,
== END | disposition home or self-care (01) ==
LOC: OPBI 09:38
PROVIDERS: PCP Family Medicine; Referring Provider Internal Medicine; Visit Provider Internal Medicine
DX: Z12.31 Encounter for screening mammogram for malignant neoplasm of breast (principal)
CPT/HCPCS: 77063; 77067

== ENCOUNTER → 2022-11-10 | Outpatient (CLI) | payer MEDICARE, SELFPAY ==
--- NOTE | 2022-11-10 11:30 | RAD_ITS ---
HISTORY: injury. TECHNIQUE: XR Knee Complete 4 Views or More. COMPARISON: None. FINDINGS: BONES : No acute fracture identified. Mineralization unremarkable. Small degenerative osteophytes JOINTS: No dislocation. Joint spaces maintained. SOFT TISSUES: Mild anterior soft tissue swelling. RAD/Knee 4 or More Views IMPRESSION: No acute fracture or dislocation identified in the left knee. Electronically Signed: Missy Miguel MD at 12:36 EDT ,
== END | disposition home or self-care (01) ==
LOC: MTRAD 11:27
PROVIDERS: PCP Family Medicine; Referring Provider Physician Assistant; Visit Provider Physician Assistant
DX: S89.92XA Unspecified injury of left lower leg, initial encounter (principal)
CPT/HCPCS: 73564

== ENCOUNTER → 2022-11-21 | Outpatient (CLI) | payer MEDICARE, SELFPAY ==
--- NOTE | 2022-11-21 07:30 | MRI_ITS ---
EXAM: MR LEFT LOWER EXTREMITY WITHOUT INTRAVENOUS CONTRAST, KNEE CLINICAL INDICATION: left knee pain TECHNIQUE: Multiplanar and multisequence MR images of the left knee without intravenous contrast. COMPARISON: Left knee radiographs, 11/10/2022. 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 Patellar enthesopathy. EXTENSOR MECHANISM: No significant abnormality. 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 LATERAL MENISCUS: Complex tear involving the body and anterior horn of the lateral meniscus. MEDIAL CAPSULE/SUPPORTING STRUCTURES: No significant abnormality. Intact. LATERAL CAPSULE/SUPPORTING STRUCTURES: No significant abnormality. Lateral collateral ligamentous complex, inclusive of the popliteal tendon, are intact. ANTERIOR CRUCIATE LIGAMENT: No significant abnormality. Intact. POSTERIOR CRUCIATE LIGAMENT: No significant abnormality. Intact. MUSCLES: No significant abnormality. CARTILAGE: Weightbearing articular cartilage is intact. Chondromalacia of the retropatellar articular cartilage. FLUID: There is a medium-sized joint effusion. MRI/Lower Ext Joint Only (Routine) IMPRESSION: 1. Complex tear involving the body and anterior horn of the lateral meniscus. 2. There is a medium-sized joint effusion. 3. 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 4. 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 Electronically Signed: Rakesh Foster DO at 8:46 EDT ,
== END | disposition home or self-care (01) ==
PROVIDERS: PCP Internal Medicine
DX: M23.92 Unspecified internal derangement of left knee (principal)
CPT/HCPCS: 73721

== ENCOUNTER → 2023-06-07 | Outpatient (CLI) | payer MEDICARE, SELFPAY ==
--- NOTE | 2023-06-07 08:05 | BI_ITS ---
MAMMOGRAPHY - BILATERAL SCREENING REASON FOR EXAM: Female, 68 years old. Routine annual screening examination. PERTINENT HISTORY: Non-contributory. TECHNIQUE: Digital bilateral breast travis (3D mammographic acquisition) in the CC and MLO projections. 2-D mediolateral oblique (MLO) and craniocaudad (CC) views of both breasts were obtained. CAD: Full Field Digital Mammography with Computer Added Detection was performed. COMPARISON: Comparison is made with prior study dated June 02, 2022 and April 30, 2021. FINDINGS: Breast Composition: The breasts are heterogeneously dense, which may obscure small masses. There are no dominant masses or suspicious calcifications. No other significant abnormalities are identified. There has been no significant change since the prior study. BI/SCRN MAMM (CAD)W/TRAVIS BILAT IMPRESSION: Stable bilateral screening mammogram. Yearly follow-up mammogram recommended. (A) ASSESSMENT CATEGORY: BIRADS Category 1: Negative. A letter regarding these results will be sent to the patient by the facility within 30 days. Approximately 10% of breast cancers are not detected by mammography. A normal mammogram should not delay biopsy of a clinically suspicious abnormality. [id number] Electronically Signed: Damien Hedrick MD at 9:13 EDT ,
== END | disposition home or self-care (01) ==
LOC: OPBI 08:05
PROVIDERS: PCP Internal Medicine; Referring Provider Internal Medicine; Visit Provider Internal Medicine
DX: Z12.31 Encounter for screening mammogram for malignant neoplasm of breast (principal)
CPT/HCPCS: 77063; 77067

== ENCOUNTER → 2023-10-14 | Outpatient (CLI) | payer MEDICARE, SELFPAY ==
--- NOTE | 2023-10-14 09:10 | US_ITS ---
STUDY: ABDOMINAL ULTRASOUND - RIGHT UPPER QUADRANT REASON FOR VISIT: Female, 68 years old microalbuminuria TECHNIQUE: Ultrasound evaluation of the right upper quadrant was performed with real-time and static calabrese-scale imaging. TECHNICAL QUALITY: Adequate. COMPARISON: None. FINDINGS: Liver: The liver is mildly enlarged and measures 18.7 cm. There is normal echogenicity of the liver. The bile ducts are within normal limits. There is hepatic color flow. The direction of portal flow is hepatopetal. There is no demonstrated mass lesion. Gallbladder: Normal distended gallbladder. The gallbladder wall measures 1.8 mm. There is a negative sonographic Timmons''s sign. There is no pericholecystic fluid. There are no gallstones. Common Bile Duct (C.B.D.): The common bile duct measures 4.6 mm. Pancreas: There is nonvisualization of the pancreas due to overlying bowel gas. Right Kidney: Normal size of the right kidney. The right kidney measures 12.1 cm x 5.9 cm x 4.7 cm. Normal renal cortex. The right cortex measures 1.0 cm. There is no demonstrated renal mass or cyst. There is no right hydronephrosis. US/Abdomen Limited IMPRESSION: Mild hepatomegaly. Electronically Signed: Damien Hedrick MD at 11:00 EDT ,
== END | disposition home or self-care (01) ==
PROVIDERS: PCP Internal Medicine; Referring Provider Internal Medicine; Visit Provider Internal Medicine
DX: R80.9 Proteinuria, unspecified (principal)
CPT/HCPCS: 76705

== ENCOUNTER → 2023-11-01 | Outpatient (CLI) | payer MEDICARE, SELFPAY ==
--- NOTE | 2023-11-01 14:53 | US_ITS ---
INDICATION: nephritic syndrome EXAMINATION: Ultrasound US Kidney(s) complete (eg, kidneys and bladder) TECHNIQUE: Hernandez scale and color doppler images were obtained of the kidneys. COMPARISON: No relevant prior comparison study available FINDINGS: RIGHT KIDNEY: The right kidney measures 12.0 cm in length. There is mild hydronephrosis. No shadowing calculus, focal lesion or perinephric collection is demonstrated. LEFT KIDNEY: The left kidney measures 13.3 cm in length. There is no hydronephrosis. No shadowing calculus, focal lesion or perinephric collection is demonstrated. URINARY BLADDER: The urinary bladder volume measures 272 mL No acute abnormality. US/Kidney and Bladder IMPRESSION: Mild right-sided hydronephrosis. Electronically Signed: Melba Zuniga MD at 8:28 EDT ,
== END | disposition home or self-care (01) ==
LOC: US 14:51
PROVIDERS: PCP Internal Medicine; Referring Provider Internal Medicine; Visit Provider Internal Medicine
DX: N05.9 Unspecified nephritic syndrome with unspecified morphologic changes (principal)
CPT/HCPCS: 76770

== ENCOUNTER → 2024-01-14 | Outpatient (CLI) | payer MEDICARE, SELFPAY ==
[2024-01-13 10:19] LABS: Microalbumin,Random Urine 71.3 mg/L (NO RANGE EST.)
[2024-01-13 10:20] LABS: Anion Gap 2 (5-15); BUN 15 mg/dL (7-18); BUN/Creat Ratio 19.6 RATIO (10-20); Calcium,Total 9.4 mg/dL (8.5-10.1); Chloride 105 mmol/L (98-107); Creatinine, Serum 0.77 mg/dL (0.55-1.02); EST Glomerular Filtration Rate 80 mL/min (>60); Est Glom Filt Rate - Afr Amer 97 mL/min (>60); Glucose 98 mg/dL (74-106); Potassium 3.9 mmol/L (3.5-5.1); Sodium Level 140 mmol/L (136-145)
== END | disposition home or self-care (01) ==
LOC: CT 17:42
PROVIDERS: PCP Internal Medicine; Referring Provider Internal Medicine Nephrology; Visit Provider Internal Medicine Nephrology
DX: N13.30 Unspecified hydronephrosis (principal); N05.9 Unspecified nephritic syndrome with unspecified morphologic changes; R80.9 Proteinuria, unspecified
CPT/HCPCS: 36415; 74176; 80048; 82043; 82570

== ENCOUNTER → 2024-11-29 | Outpatient (CLI) | payer MEDICARE, SELFPAY ==
--- NOTE | 2024-11-29 14:00 | BD_ITS ---
PROCEDURE: DEXA BONE DENSITY STUDY 11/29/2024 REASON FOR EXAM: F, age 69 y/o . Postmenopausal. TECHNIQUE: Procedure Code: BDDBD Modality: DX Procedure: DEXA BONE DENSITY STUDY COMPARISON: DEXA examination dated 04/07/2022 FINDINGS: BMD and T-SCORES Lumbar spine: 1.000 g/cm2, T-score -0.4 Levels: L1 through L4 Change from prior: There has been an increase in the bone mineral density of the lumbar spine by 1.2% since the prior study dated 04/07/2022.. Left femoral neck: 0.810 g/cm2, T-score -0.4 Left total hip: 1.017 g/cm2, T-score 0.6 Right femoral neck: 0.844 g/cm2, T-score 0 Right total hip: 1.032 g/cm2, T-score 0.7 The World Health Organization has defined the following categories based on bone density: Normal bone density: T-score equal to or greater than -1.0 Osteopenia: T-score between -1.0 and -2.5 Osteoporosis: T-score equal to or less than -2.5 FRAX (or Comparable) Fracture Risk Assessment: 10 Year Probability of Fracture: Major Osteoporotic Fracture: 12% Hip Fracture: 0.7% (Note: FRAX is not to be reported in setting of normal range bone density, osteoporosis on DEXA, known history of osteoporosis, prior osteoporotic hip or vertebral fracture, or for any patient undergoing pharmacological treatment for bone loss.) The National Osteoporosis Foundation (NOF) recommends pharmacological treatment for patients with a FRAX 10-year risk of 3% or higher for a hip fracture, or 20% or higher for a major osteoporotic fracture, to prevent osteoporosis and reduce fracture risk. The patient does not meet the pharmacological treatment recommendations for prevention of osteoporosis. BD/Dexa Bone Density Study IMPRESSION: NORMAL T-SCORES. Recommend follow-up as clinically warranted. Reading Location: [id number]
--- NOTE | 2024-11-29 14:30 | BI_ITS ---
EXAM: SCRN MAMM (CAD)W/TRAVIS BILAT DATE: 11/29/2024 CLINICAL HISTORY: F, Age 69 y/o , SCREENING No family history. TECHNIQUE: Procedure Code: [id number] Modality: MG Procedure: SCRN MAMM (CAD)W/TRAVIS BILAT COMPARISON: Prior exam(s) dated June 07, 2023.. FINDINGS: TISSUE DENSITY: The breasts are heterogeneously dense, which may obscure small masses. Bilateral Breast Mammographic Findings: No significant masses, calcifications or other abnormalities are identified. No suspicious masses, areas of developing architectural distortion, or suspicious calcifications. There has been no significant interval change. BI/SCRN MAMM (CAD)W/TRAVIS BILAT IMPRESSION: Stable bilateral screening mammogram. OVERALL FINAL ASSESSMENT BI-RADS 1: NEGATIVE. RECOMMENDATION: Routine annual follow-up in 1 Year A letter with findings and recommendations will be mailed to the patient. Reading Location: [place] [id number]
--- OUTSIDE RECORDS SUMMARY | 2024-11-29 20:54 | XMS RPT_ITS | CCD ---
Author Organization [facility] Care Team Providers Care Joint Sealer Name Role Phone Aminta Gage DO Unavailable [phone] [place] EXPLORATION ENGINEER, Kayela Unavailable Unavailable Afsaneh Moran MA Unavailable Unavailable Aminta Gage DO Attending Unavailable Aminta Gage DO Referring Unavailable Aminta Gage DO Consulting Unavailable Dr. Eileen Riggs Primary Care Provider Dr. Eileen Riggs Referring Provider ERNST Luke Attending Provider ERNST Kingsley Attending Provider Dr. Aminta Gage Primary Care Provider Dr. Aminta Gage Referring Provider Wilfred NAVAL AIRCREWMAN, Oleg Unavailable Unavailable Zhang NAVAL AIRCREWMAN, BALWINDER Unavailable Unavailable Dr. Aminta Gage DO Primary Care Provider Dr. Aminta Gage DO Referring Provider Vishal Chavis Attending Provider [phone] Vishal Chavis Attending Unavailable Aminta Gage Referring Unavailable Aminta Gage Primary Care Unavailable Elie, Tarasyaprakas Referring Unavailable Karen Delgadillo Attending Unavailable Aminta Gage Primary Care Unavailable Aminta Gage Primary Care Unavailable Aminta Gage Referring Unavailable Aminta Gage Attending Unavailable Allergies Allergy Classification Reported Allergen(s) Allergy Type Date of Onset Reaction(s) Facility (7 sources) abacavir Drug Allergy [facility] Work Phone: Comment on above: Any Sulfa, hives (7 sources) Antihistamine 12 Hour Allergy to drug (finding) [facility] Work Phone: Comment on above: Can't take any of th e Antihistamines, can't breath (6 sources) Sulfonamides (Antibiotic) Allergy to substance 01-29-20 Other [facility] (6 sources) Antihistamines - Alkylamine Allergy to substance 01-29-20 Unknown [facility] (7 sources) wool; Translations: [wool] Allergy to substance 01-29-20 21 Other [facility] (1 source) Sulfonamides (Antibiotic) Drug allergy (disorder) 08-26-19 [facility] Repository (1 source) Antihistamines - Alkylamine Drug allergy (disorder) 08-26-19 [facility] Repository Medications Current Medications Medication Drug Class(es) Dates Sig (Normalized) Sig (Original) acetaminophen 500 mg oral tablet (2 sources) Start: 12-14-2022 take 2 tablets by mouth every six hours as needed Acetaminophen (Tylenol Extra Strength) 500 mg tablet Active 1000 mg PO EVERY 6 HOURS as needed December 14, 2022 12:00am etodolac 500 mg oral tablet (2 sources) Nonsteroidal Anti-inflammatory Drug Start: 12-14-2022 Etodolac 500 mg tablet Active 500 mg PO TWICE A DAY 40 December 14, 2022 12:00am Take regularly for next 14 days then as needed lisinopril 10 mg oral tablet (7 sources) Angiotensin Converting Enzyme Inhibitor Start: 11-12-2022 Lisinopril Active MG PO November 12, 2022 12:00am Start: 10-27-2022 Lisinopril 10 mg tablet Active mg PO November 12, 2022 12:00am Start: 10-01-2022 take 1 tablet by anderson th once daily lisinopriL 10 mg oral tablet 1 Tablet daily for 0 days Quantity: 30 {Tablet} Refills: 3 Ordered: 01-Oct-2022 Aminta Gage DO, DO, Kathleen Start : 01-Oct-2022 Active Multivitamin preparation (5 sources) Start: 01-16-2019 take 1 tablet by mouth once daily Multivitamin Active 1 TABLET PO DAILY January 16, 2019 1:00am Start: 01-16-2019 take 1 tablet by anderson th once daily Multivitamin Active 1 TABLET PO DAILY January 16, 2019 12:00am Multivitamin tablet (1 source) Start: 01-16-2019 Multivitamin t ablet Active 1 {tbl} PO DAILY January 16, 2019 1:00am rosuvastatin calcium 10 mg oral tablet (7 sources) HMG-CoA Reductase Inhibitor Start: 11-12-2022 Rosuvastatin Active MG PO November 12, 2022 12:00am Start: 10-27-2022 Rosuvastatin 1 0 mg tablet Active mg PO November 12, 2022 12:00am Start: 10-01-2022 take 1 tablet by anderson th once daily at bedtime Crestor 10 mg oral tablet 1 Tablet qhs for 0 days Quantity: 30 {Tablet} Refills: 4 Ordered: 01-Oct-2022 Aminta Gage DO, DO, Kathleen Start : 01-Oct-2022 Active Completed/Discontinued Medications Medication Drug Class(es) Dates Sig (Normalized) Sig (Original) acetaminophen 325 mg / HYDROcodone bitartrate 5 mg oral tablet (6 sources) Opioid Agonist Start: 04-24-2019 End: 04-28-2019 Hydrocodone-Acetami nophen 1 TABLET tablet Discontinued 1 {tbl} PO EVERY 6 HOURS NEEDED as needed for Pain 15 4 April 24, 2019 April 27, 2019 1:00am April 28, 2019 1:09am Start: 04-24-2019 End: 04-28-2019 take 1 tablet by mouth every six hours as needed Hydrocodone-Acetaminophen Discontinued 1 TABLET PO EVERY 6 HOURS NEEDED 15 4 April 24, 2019 April 28, 2019 1:09am azithromycin 250 mg oral tablet (6 sources) Macrolide Antimicrobial Start: 01-28-2021 End: 11-10-2022 take 2-5 tablets by mouth once daily Azithromycin 250 mg tablet Discontinued 0 PO .COMPLEX 6 January 28, 2021 1:00am November 10, 2022 11:47am take 500 mg today (day 1), then 250 mg for 4 days (days 2-5) PO citalopram 20 mg oral tablet (13 sources) Serotonin Reuptake Inhibitor Start: 03-26-2022 take 1 tablet by mouth once daily at bedtime CeleXA 20 mg oral tablet 1 (one) tablet qhs for 30 days Quantity: 30 {Tablet} Refills: 5 Ordered: 02-Jul-2022 Beverley Menon CMA Start : 26-Mar-2022 Active Start: 01-16-2019 Citalopram 20 mg tablet Active 30 mg PO DAILY January 16, 2019 1:00am Start: 01-16-2019 take 30 mg by mouth once daily Citalopram Active 30 MG PO DAILY January 16, 2019 1:00am doxycycline monohydrate 100 mg oral capsule (4 sources) Tetracycline-class Drug Start: 11-10-2022 End: 12-14-2022 take 1 capsule by mouth twice daily Doxycycline Monohydrate 100 mg capsule Discontinued 100 mg PO TWICE A DAY November 10, 2022 12:00am December 14, 2022 9:09am hydrocortisone 25 mg/ml topical cream (6 sources) Corticosteroid Start: 04-24-2019 End: 11-12-2022 Hydrocortisone 30 GM cream with perineal applicator Discontinued 30 g RC Q4H as needed for pain April 24, 2019 12:45pm November 12, 2022 8:47am metroNIDAZOLE 250 mg oral tablet (6 sources) Nitroimidazole Antimicrobial Start: 04-24-2019 End: 12-14-2022 take 1 tablet by mouth three times daily Metronidazole 250 MG tablet Discontinued 250 mg PO THREE TIMES A DAY April 24, 2019 1:00am December 14, 2022 9:10am predniSONE 10 mg oral tablet (4 sources) Start: 11-10-2022 End: 12-14-2022 take 4 tablets by mouth once daily, then take 3 tablets by mouth once daily, then take 2 tablets by mouth once daily, then take 1 tablet by mouth once daily Prednisone 10 mg tablet Discontinued 10 mg PO As Directed November 10, 2022 12:00am December 14, 2022 9:09am 4 tablets daily x3 days, then 3 tablets daily x3 days, then 2 tablets daily x3 days, then 1 tablet daily x3 days vitamin b12 2.5 mg chewable tablet (6 sources) Vitamin B12 Start: 04-17-2019 End: 11-12-2022 take 2 tablets by mouth once daily Cyanocobalamin (Vitamin B-12) 2,500 MCG tablet,chewable Discontinued 5000 ug PO DAILY April 17, 2019 1:00am November 12, 2022 8:47am Start: 04-17-2019 End: 11-12-2022 take 5000 ug by mouth once daily Cyanocobalamin (Vitamin B-12) Discontinued 5000 MCG PO DAILY April 17, 2019 1:00am November 12, 2022 8:47am Problems Active Problems Problem Classification Problem Date Documented Da te Episodic/Chronic Acute bronchitis (6 sources) Acute bronchitis; Translations: [Acute bronchitis, unspecified] 01-28-2021 Episodic Diabetes mellitus without complication (14 sources) Type 2 diabetes mellitus; Translations: [Type II diabetes mellitus, well controlled] 07-02-2022 Chronic Comment on above: new dx 2022 new dx 2022on el an d statin -- doing diet and exercise for sugar control Disorders of lipid metabolism (10 sources) Mixed hyperlipidemia; Translations: [Hyperlipidemia, mixed] 10-01-2022 Chronic Gastrointestinal hemorrhage (6 sources) Rectal hemorrhage; Translations: [Hemorrhage of anus and rectum] 01-16-2019 Episodic Genitourinary symptoms and ill-defined conditions (7 sources) Microalbuminuria; Translations: [Microalbuminuria] 10-01-2022 Episodic Hemorrhoids (6 sources) Bleeding hemorrhoids; Translations: [Unspecified hemorrhoids] 02-14-2019 Episodic Immunizations and screening for infectious disease (20 sources) Patient encounter status; Translations: [Encounter for hepatitis C virus screening test for high risk patient] 03-26-2022 Episodic Joint disorders and dislocations; trauma-related (10 sources) Derangement of left knee; Translations: [Unspecified internal derangement of left knee] 11-10-2022 Chronic Joint disorders and dislocations; trauma-related (1 source) Unspecified tear of unspecified meniscus, current injury, left knee, initial encounter; Translations: [Other tear of cartilage or meniscus of knee, current] 11-24-2022 Episodic Mood disorders (20 sources) Depressive disorder; Translations: [Depression] Resolved: 07-02-2022 03-26-2022 Chronic Other gastrointestinal disorders (14 sources) Constipation; Translations: [Constipation] 03-26-2022 Episodic Comment on above: stable Other lower respiratory disease (6 sources) Cough; Translations: [Cough] 01-28-2021 Episodic Other non-traumatic joint disorders (2 sources) Knee joint inflamed; Translations: [Monoarthritis, not elsewhere classified, left knee] 12-14-2022 Chronic Other nutritional; endocrine; and metabolic disorders (20 sources) Body mass index 30+ - obesity; Translations: [BMI 34.0-34.9,adult] 03-26-2022 Chronic Other screening for suspected conditions (not mental disorders or infectious disease) (1 source) Encounter for screening mammogram for malignant neoplasm of breast; Translations: [Encounter for screening mammogram for malignant neoplasm of breast] Onset: 11-24-2024 Episodic Residual codes; unclassified (14 sources) Family history of diabetes mellitus; Translations: [Family history of diabetes mellitus (DM)] 03-26-2022 Episodic Residual codes; unclassified (20 sources) Non-smoker; Translations: [Nonsmoker] 03-26-2022 Episodic Residual codes; unclassified (14 sources) Postmenopausal state; Translations: [Postmenopausal] 03-26-2022 Episodic Residual codes; unclassified (1 source) Asymptomatic menopausal state; Translations: [Asymptomatic menopausal state] Onset: 11-24-2024 Episodic Skin and subcutaneous tissue infections (6 sources) Cellulitis of neck; Translations: [Cellulitis of neck] 11-10-2022 Episodic Sprains and strains (6 sources) Strain of knee; Translations: [Strain of unspecified muscle(s) and tendon(s) at lower leg level, left leg, initial encounter] 11-10-2022 Episodic Unclassified (20 sources) Past or Other Problems Problem Classification Problem Date Documented Da te Episodic/Chronic Other diseases of kidney and ureters (1 source) Unspecified hydronephrosis; Translations: [Unspecified hydronephrosis] Onset: 02-03-2024 Episodic Results Test Name Value Interpretation Reference Range Facility Urgent Care Visit Reporton 0 08-25-2024 Urgent Care Visit Report [facility] [address], [address] [place] [address] OFFICE VISIT Date of Service: 08/25/24 MR#: [id number] Acct: [id number] Name: RAKEL MARRERO Rep #: [id number] : 1955 Provider: ERNST Yip Age/Sex: 69/F Location: [facility] Status: Signed Intake Vital Signs 11/12/22 08:45 08/25/24 07:59 Height 5 ft 7 in BP 148/76 H Blood Pressure Location Lt brachial Position Sitting Respiration 17 Pulse 63 Pulse Source NIBP Temp 98.2 F Temp Source Oral Pulse Oximetry (%) 95 Oxygen Delivery Method room air Intake Visit Reasons: cough Chief Complaint: cough, chest congestion Housekeeper Manager Required: No Is patient in pain?: No Allergies Antihistamines - Alkylamine Allergy (Mild, Verified 08/25/24 08:00) Unknown Sulfa (Sulfonamide Antibiotics) Allergy (Mild, Verified 08/25/24 08:00) Other wool Allergy (Mild, Verified 08/25/24 08:00) Other Is last menstrual period known: No Post menopausal: Yes Patient : No Have you fallen in the past year?: No Nurse's Note: EQUITIES TRADER cough, chest congestion x 3-4 days worsening. pt denies GHOTRA, BA, ST, fever. pt states she is getting worked up for asthma/emphysema but no dx at this time. uses inhalers prn with minimal relief. hx allergies, can only tolerate Flonase for this. concern for bronchitis PFSH Medical History Bleeding hemorrhoids Cellulitis, neck Depression Hemorrhoids Internal derangement of left knee Strain of left knee Surgical History H/O thumb surgery S/p bilateral carpal tunnel release S/P hemorrhoidectomy S/P tubal ligation Status post colonoscopy ( 01/31/19) Family History Mother Heart disease Diabetes Father Cancer Social History Smoking Status: Never smoker alcohol intake: never HPI HPI Chief Complaint: cough, chest congestion Details: RAKEL MARRERO, is a 69 F who presents to the office today for complaint of cough and congestion for the past 5 days. Patient states that her cough has turned into a barky cough and in the past this typically means that she has bronchitis. Patient does state that this has caused her to be hospitalized on multiple occasions in the past and that she is currently undergoing evaluation by a bad credit collector to try to figure out what is causing her respiratory issues. Patient denies shortness of breath or difficulty breathing at this time. No fever, chills, sweats. No other associated symptoms or alleviating/aggravatin g factors. ROS Const Constitutional: No other (6 system ROS completed with pertinent findings in the HPI otherwise normal.) Exam Const General: cooperative and well developed HENMT Head: normal to inspection and atraumatic Ears: hearing grossly normal bilaterally Nose: nasal discharge clear Face and sinus: normal facial exam Mouth: oral mucosae normal Throat: abnormal tonsil bilaterally hypertrophy 1+ Resp Effort Inspection: normal respiratory effort and no audible wheezes Auscultation: Bilateral: Clear to Auscultation Cardio Palpation: normal PMI Rate: regular rate Rhythm: regular rhythm Neuro General: patient alert and CN's II-XI intact bilaterally Psych Appearance: grossly normal Mental Status: mental status grossly normal Coding Level of Care Code Off vis,new,level 3 Diagnoses Acute bronchitis J20.9 Assessment and Plan Assessment and Plan (1) Acute bronchitis: Status: Acute Plan: Azithromycin and Medrol Dosepak as prescribed today. Encouraged to get plenty of rest, drink lots of clear liquids, and use Tylenol or Ibuprofen (unless contraindicated) for fever and comfort. Patient also educated on other symptomatic management techniques. To be seen in 7-10 days if no improvement; sooner if worsening of symptoms. Patient advised of potential red flags and when appropriate to report to the ED. Patient verbalized understanding and agreement with all the above. Medications: New azithromycin take 500 mg today (day 1), then 250 mg for 4 days (days 2-5) PO 6 tabs 0RF methylprednisolone (Medrol (Issa)) 4 mg PO PER PKG DIR 21 tabs 0RF 6 days Clinical Quality Measures Falls Risk Screening/Assistive Devices Have you fallen in the past year?: No 08/25/24 0807 Date Vishal Oates Signature: Date (if applicable) CC: Normal [facility] Abdomen/Pelvis without Conto n 01-14-2024 Abdomen/Pelvis without Cont [facility] [address] [place] [address] Abdomen/Pelvis without Cont MR#: [id number] Acct: [id number] Name: RAKEL MARRERO Rep #: [id number] : 1955 F 68 From: David brush MD PCP: Dr. Aminta Gage, DO Status: REG CLI Study: Abdomen/Pelvis without Cont Date of Exam: 04/07 Exam# [id number] Ordering Dr: Karen Delgadillo MD [id number] INDICATION: unspecified hydronephrosis EXAMINATION: CT ABDOMEN AND PELVIS WITHOUT CONTRAST - CT Abdomen And Pelvis W/O Contrast Injection TECHNIQUE: Helically acquired images were obtained of the abdomen and pelvis without oral or IV contrast. A radiation dose optimization technique was used for this scan. IV Contrast dosage and agent: None. Oral contrast: None. RADIATION DOSAGE (If Supplied By Facility): CTDIvol = ( 12.08 ) mGy, DLP = ( 573.43 ) mGycm COMPARISON: No relevant prior comparison study available FINDINGS: LOWER CHEST: Lung bases are clear. No cardiomegaly or pericardial effusion. Coronary artery calcifications are seen. LIVER: The liver is normal in size, shape, and attenuation. No focal mass. GALLBLADDER AND BILIARY TREE: The gallbladder is normally distended. No gallstones. No gallbladder wall thickening or edema. No intra- or extrahepatic biliary ductal dilation. PANCREAS: No focal cystic or solid mass. SPLEEN: Normal size without focal cystic or solid mass. ADRENAL GLANDS: Normal right adrenal gland. 2 cm left adrenal gland nodule, consistent with a lipid rich adenoma. No specific follow-up recommended. KIDNEYS AND URETERS: Normal renal size and position. No hydronephrosis. 0.2 cm left midpole renal calculus. PERITONEUM: No ascites or free air. No other fluid collection. BOWEL: The stomach is unremarkable. Normal caliber small bowel. No obstruction. No colonic wall thickening or inflammatory changes. Colonic diverticulosis without diverticulitis. No evidence of acute appendicitis. LYMPH NODES: No enlarged mesenteric or retroperitoneal lymph nodes. VESSELS: Aorta is non-dilated. Mild atherosclerotic calcification. URINARY BLADDER: Unremarkable. REPRODUCTIVE ORGANS: No pelvic masses. ABDOMINAL WALL: No discrete abdominal or pelvic wall hernia. BONES: No acute or suspicious osseous abnormality. Multilevel degenerative changes of the spine. CT/Abdomen/Pelvis without Cont IMPRESSION: No hydronephrosis. Nonobstructing left midpole renal calculus. Colonic diverticulosis without diverticulitis. Electronically Signed: David Bates MD at 1:59 EDT , CC: Dr. Karen Delgadillo MD; Dr. Aminta Gage DO Organ Tuner: Signed Normal [facility] Basic Metabolic Profile (BMP )on 01-13-2024 BUN/CRE 19.6 RATIO Normal 01-01 [facility] Comment on above: Performed By: #### L 502.0250, L500.2500 #### [facility] [address] [place], [address] CA,Total 9.4 mg/dL Normal 8.5-10.1 [facility] Comment on above: Performed By: #### L 502.0250, L500.2500 #### [facility] [address] [place], [address] Chloride [Moles/Vol] 105 mmol/L Normal 98-107 [facility] Comment on above: Performed By: #### L 502.0250, L500.2500 #### [facility] [address] [place], [address] CO2 [Moles/Vol] 33.0 mmol/L High 21.0-32.0 [facility] Comment on above: Performed By: #### L 502.0250, L500.2500 #### [facility] [address] [place], [address] Creatinine [Mass/Vol] 0.77 mg/dL Normal 0.55-1.02 [facility] Comment on above: Result Comment: The validity of the calculated GFR GFRAA in patients over 70 years has not been determined. Clinical correlation is essential. Performed By: #### L 502.0250, L500.2500 #### [facility] [address] [place], [address] EST GFR - AA 97 mL/min Normal >60 [facility] Comment on above: Result Comment: Afri can Citizen [place] GFR Calc Performed By: #### L 502.0250, L500.2500 #### [facility] [address] [place], [address] GAP 2 Low 5-15 [facility] Comment on above: Performed By: #### L 502.0250, L500.2500 #### [facility] [address] [place], [address] GFR/1.73 sq M.predicted among non-blacks MDRD (S/P/Bld) [Vol rate/Area] 80 mL/min/{1.73_m2} Normal >60 [facility] Comment on above: Result Comment: Non- GFR Calc Performed By: #### L 502.0250, L500.2500 #### [facility] [address] [place], [address] Glucose [Mass/Vol] 98 mg/dL Normal 74-106 [facility] Comment on above: Performed By: #### L 502.0250, L500.2500 #### [facility] [address] [place], [address] Potassium [Moles/Vol] 3.9 mmol/L Normal 3.5-5.1 [facility] Comment on above: Performed By: #### L 502.0250, L500.2500 #### [facility] [address] [place], [address] Sodium [Moles/Vol] 140 mmol/L Normal 136-145 [facility] Comment on above: Performed By: #### L 502.0250, L500.2500 #### [facility] [address] [place], [address] Urea nitrogen [Mass/Vol] 15 mg/dL Normal 7-18 [facility] Comment on above: Performed By: #### L 502.0250, L500.2500 #### [facility] [address] [place], [address] Microalb:Creat Ratio,Random URon 01-13-2024 Creatinine [Mass/Vol] 65.40 mg/dL Normal NO RAN GE EST. [facility] Comment on above: Performed By: #### L 502.0250, L500.2500 #### [facility] [address] [place], [address] MALB:CRE 109.0 mg/g CRE High <30 mg/g CRE [facility] Comment on above: Performed By: #### L 502.0250, L500.2500 #### [facility] [address] [place], [address] MICROALBUMIN,UR 71.3 mg/L Normal NO RANGE EST. [facility] Comment on above: Performed By: #### L 502.0250, L500.2500 #### [facility] [address] [place], [address] Blood Glucose , Office ([phone])Ordered By: Oleg Hardin on 01-07-2023 Glucose Glucometer (BldC) [Moles/Vol] 105 1 Normal [facility]; [facility] Work Phone: HgA1C , Office ([phone])Ordere d By: Oleg Hardin on 01-07-2023 HbA1c (Bld) [Mass fraction] 5.9 % Normal 4.6 - 7.1 [facility] Work Phone: HEPATIC FUNCTION PANEL ([phone])Ordered By: Wool Tamper on 12-29-2022 Albumin [Mass/Vol] 4.6 g/dL Normal 3.9-4.9 [facility]; [facility] Work Phone: Comment on above: PATIENT WAS FASTINGP ERFORMED BY: CB [facility] [id number] [place] [id number] ALP [Catalytic activity/Vol] 40 U/L Abnormal 44-121 [facility]; [facility] Work Phone: Comment on above: PATIENT WAS FASTINGP ERFORMED BY: CB [facility] [id number] [place] [id number] ALT [Catalytic activity/Vol] 24 U/L Normal 0-32 [facility]; [facility] Work Phone: Comment on above: PATIENT WAS FASTINGP ERFORMED BY: CB [facility] [id number] [place] [id number] AST [Catalytic activity/Vol] 21 U/L Normal 0-40 [facility]; [facility] Work Phone: Comment on above: PATIENT WAS FASTINGP ERFORMED BY: CB [facility] [id number] [place] [id number] Bilirubin [Mass/Vol] 0.3 mg/dL Normal 0.0-1.2 [facility]; [facility] Work Phone: Comment on above: PATIENT WAS FASTINGP ERFORMED BY: CB [facility] [id number] [place] [id number] Bilirubin.direct [Mass/Vol] 0.14 mg/dL Normal 0.00-0.40 [facility]; [facility] Work Phone: Comment on above: PATIENT WAS FASTINGP ERFORMED BY: CB [facility] [id number] [place] [id number] Protein [Mass/Vol] 7.0 g/dL Normal 6.0-8.5 [facility]; [facility] Work Phone: Comment on above: PATIENT WAS FASTINGP ERFORMED BY: MICHELLE [facility] [id number] [place] [id number] LIPID PANEL ([id number])Ordered B y: Wool Tamper on 12-29-2022 Cholesterol [Mass/Vol] 117 mg/dL Normal 100-199 [facility]; [facility] Work Phone: Comment on above: PATIENT WAS FASTINGP ERFORMED BY: MICHELLE [facility] [id number] [place] [id number] Cholesterol in HDL [Mass/Vol] 45 mg/dL Normal [facility]; [facility] Work Phone: Comment on above: PATIENT WAS FASTINGP ERFORMED BY: MICHELLE [facility] [id number] [place] [id number] Triglyceride [Mass/Vol] 117 mg/dL Normal 0-149 [facility]; [facility] Work Phone: Comment on above: PATIENT WAS FASTINGP ERFORMED BY: MICHELLE [facility] Oxviww9336 [address] RoadDublin [place] [id number] LIPID PANEL (47076) 21 mg/dL Normal 5-40 Compr ensive [facility] Medicine; [facility] Work Phone: Comment on above: PATIENT WAS FASTINGP ERFORMED BY: MICHELLE [facility] Vndvqg5982 [address] RoadDublin [place] [id number] LIPID PANEL (85888) 51 mg/dL Normal 0-99 Compr ensive [facility]; [facility] Work Phone: Comment on above: PATIENT WAS FASTINGP ERFORMED BY: MICHELLE [facility] Bslctq8461 [address] RoadDublin [place] [id number] LIPID PANEL (53397) 1.1 {ratio} Normal 0.0-3.2 Comp [facility]; [facility] Work Phone: Comment on above: LDL/HDL Ratio Men Wo men 1/2 Avg.Risk 1.0 1.5 Avg.Risk 3.6 3.2 2X Avg.Risk 6.2 5.0 3X Avg.Risk 8.0 6.1 PATIENT WAS FASTINGP ERFORMED BY: MICHELLE [facility] Cmvdle44[address] WantrUNC Health Blue Ridge [id number] Blood Glucose , Office (8296 2)on 10-01-2022 Glucose Glucometer (BldC) [Moles/Vol] 103 1 Normal [facility]; [facility] Work Phone: Comment on above: non fasting HgA1C , Office (38937)on HbA1c (Bld) [Mass fraction] 5.9 % Normal 4.6 - 7.1 [facility]; [facility] Work Phone: CBC W/AUTO DIFF WBC (11829)O rdered By: Wool Tamper on 09-21-2022 Basophils (Bld) [#/Vol] 0.1 10*3/uL Normal 0.0-0.2 [facility]; [facility] Work Phone: Comment on above: PATIENT WAS FASTINGP ERFORMED BY: MICHELLE [place] [employer] Technologiesyanick Nsmqgl0[address] WantrUNC Health Blue Ridge [id number] Basophils/100 WBC (Bld) 1 % Normal [facility]; [facility] Work Phone: Comment on above: PATIENT WAS FASTINGP ERFORMED BY: MICHELLE [employer]fin Eehacn0013 [address] WantrUNC Health Blue Ridge [id number] Eosinophils (Bld) [#/Vol] 0.3 10*3/uL Normal 0.0-0.4 [facility]; [facility] Work Phone: Comment on above: PATIENT WAS FASTINGP ERFORMED BY: MICHELLE [employer]fin Zbaqka7639 [address] WantrUNC Health Blue Ridge [id number] Eosinophils/100 WBC (Bld) 4 % Normal [facility]; [facility] Work Phone: Comment on above: PATIENT WAS FASTINGP ERFORMED BY: MICHELLE [place] Interactive Technologiesb[facility] Mcybwt4358 [facility] [id number] Erythrocyte distribution width (RBC) [Ratio] 13.0 % Normal 11.7-15.4 [facility]; [facility] Work Phone: Comment on above: PATIENT WAS FASTINGP ERFORMED BY: MICHELLE Phillipbarn[facility] Avzjuj8561 [facility] [id number] Hematocrit (Bld) [Volume fraction] 42.1 % Normal 34.0-46.6 [facility]; [facility] Work Phone: Comment on above: PATIENT WAS FASTINGP ERFORMED BY: MICHELLE Delacruz Rrvief3337 [facility] [id number] Hemoglobin (Bld) [Mass/Vol] 14.4 g/dL Normal 11.1-15.9 [facility]; [facility] Work Phone: Comment on above: PATIENT WAS FASTINGP ERFORMED BY: [facility] Sihanm0303 [facility] [id number] Immature granulocytes (Bld) [#/Vol] 0.0 10*3/uL Normal 0.0-0.1 [facility]; [facility] Work Phone: Comment on above: PATIENT WAS FASTINGP ERFORMED BY: Phillipbarn[facility] Uxzyug0619 [facility] [id number] Immature granulocytes/100 WBC (Bld) 0 % Normal [facility]; [facility] Work Phone: Comment on above: PATIENT WAS FASTINGP ERFORMED BY: Nubia Dhxpoh9639 [facility] [id number] Lymphocytes (Bld) [#/Vol] 2.4 10*3/uL Normal 0.7-3.1 [facility]; [facility] Work Phone: Comment on above: PATIENT WAS FASTINGP ERFORMED BY: [place] [id number] [facility] [id number] Lymphocytes/100 WBC (Bld) 29 % Normal [facility]; [facility] Work Phone: Comment on above: PATIENT WAS FASTINGP ERFORMED BY: MICHELLE Delacruz Uygfbb9030 [facility] [id number] MCH (RBC) [Entitic mass] 30.6 pg Normal 26.6-33.0 [facility]; [facility] Work Phone: Comment on above: PATIENT WAS FASTINGP ERFORMED BY: MICHELLE Labcoalba Hskdxc5180 [address] RoadDublin [place] [id number] MCHC (RBC) [Mass/Vol] 34.2 g/dL Normal 31.5-35.7 [facility] prehensive Internal Medicine; [facility] Work Phone: Comment on above: PATIENT WAS FASTINGP ERFORMED BY: MICHELLE [facility] Cvqpqx3901 [address] RoadDublin [place] [id number] MCV (RBC) [Entitic vol] 89 fL Normal 79-97 [facility]; [facility] Work Phone: Comment on above: PATIENT WAS FASTINGP ERFORMED BY: MICHELLE [facility] Hckspu3367 [address] Roadblin [place] [id number] Monocytes (Bld) [#/Vol] 0.7 10*3/uL Normal 0.1-0.9 [facility]; [facility] Work Phone: Comment on above: PATIENT WAS FASTINGP ERFORMED BY: MICHELLE [facility] Qxubwm9225 [address] RoadDublin [place] [id number] Monocytes/100 WBC (Bld) 8 % Normal [facility]; [facility] Work Phone: Comment on above: PATIENT WAS FASTINGP ERFORMED BY: MICHELLE Labcoalba AguayoVgbgsu[address] [facility] Centerblin [place] [id number] Neutrophils (Bld) [#/Vol] 4.8 10*3/uL Normal 1.4-7.0 [facility]; [facility] Work Phone: Comment on above: PATIENT WAS FASTINGP ERFORMED BY: MICHELLE [facility] Bknumh1989 [address] RoadDublin [place] [id number] Neutrophils/100 WBC (Bld) 58 % Normal [facility]; [facility] Work Phone: Comment on above: PATIENT WAS FASTINGP ERFORMED BY: CB [facility] Omivdp6479 [address] RoadDublin [place] [id number] Platelets (Bld) [#/Vol] 240 10*3/uL Normal 150-450 [facility]; [facility] Work Phone: Comment on above: PATIENT WAS FASTINGP ERFORMED BY: MICHELLE [facility] Xxmtkc7592 [address] RoadDublin [place] [id number] RBC (Bld) [#/Vol] 4.71 10*6/uL Normal 3.77-5.28 [facility]; [facility] Work Phone: Comment on above: PATIENT WAS FASTINGP ERFORMED BY: CB [facility] Uiswnq9018 [address] RoadDublin [place] [id number] WBC (Bld) [#/Vol] 8.3 10*3/uL Normal 3.4-10.[address] [address] [facility]; [facility] Work Phone: Comment on above: PATIENT WAS FASTINGP ERFORMED BY: MICHELLE [facility] Tjgonz8885 [address] RoadDublin [place] [id number] LIPID PANEL (28935)Ordered B y: Wool Tamper on 09-21-2022 Cholesterol [Mass/Vol] 194 mg/dL Normal 100-199 [facility]ensive [facility]; [facility] Work Phone: Comment on above: PATIENT WAS FASTINGP ERFORMED BY: MICHELLE [facility] Txnedv9843 [address] RoadDublin [place] [id number] Cholesterol in HDL [Mass/Vol] 37 mg/dL Abnormal [facility]; [facility] Work Phone: Comment on above: PATIENT WAS FASTINGP ERFORMED BY: MICHELLE [facility] Nuwrqh4173 [address] RoadDublin [place] [id number] Triglyceride [Mass/Vol] 276 mg/dL Abnormal 0-149 [facility]; [facility] Work Phone: Comment on above: PATIENT WAS FASTINGP ERFORMED BY: CB [facility] Neukuw9318 [address] RoadDublin [place] [id number] LIPID PANEL (83529) 48 mg/dL Abnormal 5-40 [facility]; [facility] Work Phone: Comment on above: PATIENT WAS FASTINGP ERFORMED BY: CB [facility] Wmbnpy9815 [address] RoadDublin [place] [id number] LIPID PANEL (31450) 109 mg/dL Abnormal 0-99 Compr ensive Internal Medicine; [facility] Work Phone: Comment on above: PATIENT WAS FASTINGP ERFORMED BY: MICHELLE Labkenneth AguayoUyuqwf[address] [facility] [id number] LIPID PANEL (58905) 2.9 {ratio} Normal 0.0-3.2 Comp [facility]ensive [facility]; [facility] Work Phone: Comment on above: LDL/HDL Ratio Men Wo men 1/2 Avg.Risk 1.0 1.5 Avg.Risk 3.6 3.2 2X Avg.Risk 6.2 5.0 3X Avg.Risk 8.0 6.1 PATIENT WAS FASTINGP ERFORMED BY: MICHELLE Aguayolin6370 [facility] [id number] METABOLIC PANEL, COMPREHENSI VE (12268)Ordered By: Wool Tamper on 09-21-2022 Albumin [Mass/Vol] 3.9 g/dL Normal 3.9-4.9 [facility] Internal Medicine; [facility] Work Phone: Comment on above: Please note refere nce interval change PATIENT WAS FASTINGP ERFORMED BY: MICHELLE Aguayolin6370 Gr[address] WantrUNC Health Blue Ridge [id number] Albumin/Globulin [Mass ratio] 1.4 {ratio} Normal 1.2-2.2 [facility]; [facility] Work Phone: Comment on above: PATIENT WAS FASTINGP ERFORMED BY: MICHELLE Aguayolin6370 [address] WantrUNC Health Blue Ridge [id number] ALP [Catalytic activity/Vol] 46 U/L Normal 44-121 [facility]; [facility] Work Phone: Comment on above: PATIENT WAS FASTINGP ERFORMED BY: MICHELLE Labkenneth AguayoIlxgfn9915 [address] WantrUNC Health Blue Ridge [id number] ALT [Catalytic activity/Vol] 35 U/L Abnormal 0-32 [facility]; [facility] Work Phone: Comment on above: PATIENT WAS FASTINGP ERFORMED BY: MICHELLE Labkenneth AguayoLbgiyp0210 [facility] [id number] AST [Catalytic activity/Vol] 22 U/L Normal 0-40 [facility]; [facility] Work Phone: Comment on above: PATIENT WAS FASTINGP ERFORMED BY: MICHELLE Deon Ocasio6370 [facility] [id number] Bilirubin [Mass/Vol] 0.2 mg/dL Normal 0.0-1.2 [facility] rehensive Internal Medicine; [facility] Work Phone: Comment on above: PATIENT WAS FASTINGP ERFORMED BY: [facility] Jlhppd6528 [facility] [id number] Calcium [Mass/Vol] 9.4 mg/dL Normal 8.7-10.3 [facility] Internal Medicine; [facility] Work Phone: Comment on above: PATIENT WAS FASTINGP ERFORMED BY: MICHELLE [facility] Bvkrhj9273 [facility] [id number] Chloride [Moles/Vol] 101 mmol/L Normal 96-106 [facility] rehensive Internal Medicine; [facility] Work Phone: Comment on above: PATIENT WAS FASTINGP ERFORMED BY: [facility] Npauey3877 [facility]imesWestern [facility] [id number] CO2 [Moles/Vol] 26 mmol/L Normal 20-29 Comprehen [facility] Internal Medicine; [facility] Work Phone: Comment on above: PATIENT WAS FASTINGP ERFORMED BY: [facility] Tnxvoc4818 [facility] [id number] Creatinine [Mass/Vol] 0.80 mg/dL Normal 0.57-1.00 [facility]erens[facility]; [facility] Work Phone: Comment on above: PATIENT WAS FASTINGP ERFORMED BY: [facility] Fckmsm4216 [facility] [id number] GFR/1.73 sq M.predicted among non-blacks MDRD (S/P/Bld) [Vol rate/Area] 82 mL/min/{1.73_m2} Normal Comprehensiv e Internal Medicine; [facility] Work Phone: Comment on above: PATIENT WAS FASTINGP ERFORMED BY: CB [facility] Dnwwsp9360 [address] RoadDublin [place] [id number] Globulin (S) [Mass/Vol] 2.7 g/dL Normal 1.5-4.5 [facility]; [facility] Work Phone: Comment on above: PATIENT WAS FASTINGP ERFORMED BY: CB [facility] Ctzkkg5822 [address] RoadDublin [place] [id number] Glucose [Mass/Vol] 105 mg/dL Abnormal 70-99 [facility] Internal Medicine; [facility] Work Phone: Comment on above: PATIENT WAS FASTINGP ERFORMED BY: CB [facility] Dttabc9000 [address] RoadDublin [place] [id number] Potassium [Moles/Vol] 5.1 mmol/L Normal 3.5-5.2 [facility]erens[facility]; [facility] Work Phone: Comment on above: PATIENT WAS FASTINGP ERFORMED BY: [facility] Lwaaov0482 [address] RoadDublin [place] [id number] Protein [Mass/Vol] 6.6 g/dL Normal 6.0-8.5 [facility] Internal Medicine; [facility] Work Phone: Comment on above: PATIENT WAS FASTINGP ERFORMED BY: [facility] Uvdaxg3298 [address] RoadDublin [place] [id number] Sodium [Moles/Vol] 140 mmol/L Normal 134-144 [facility] Internal Medicine; [facility] Work Phone: Comment on above: PATIENT WAS FASTINGP ERFORMED BY: [facility] Bhdrdg7230 [address] RoadDublin [place] [id number] Urea nitrogen [Mass/Vol] 17 mg/dL Normal 8-27 [facility] Internal Medicine; [facility] Work Phone: Comment on above: PATIENT WAS FASTINGP ERFORMED BY: CB [facility] Qcnxlf0647 [address] RoadDublin [place] [id number] Urea nitrogen/Creatinine [Mass ratio] 21 mg/mg Normal 12-28 [facility]; [facility] Work Phone: Comment on above: PATIENT WAS FASTINGP ERFORMED BY: MICHELLE [facility] Qzstbr2151 [address] RoadDublin [place] [id number] MICROALBUMINOrdered By: [employer] Packaging Materials Inspector on 09-21-2022 Albumin DL <= 20 mg/L (U) [Mass/Vol] 139.7 ug/mL Normal [facility]; [facility] Work Phone: Comment on above: PATIENT WAS FASTINGP ERFORMED BY: MICHELLE [facility] Gkbqhc1882 [address] RoadDublin [place] [id number] Albumin/Creatinine (U) [Mass ratio] 181 {mg/g_creat} Abnormal 0-29 [facility]; [facility] Work Phone: Comment on above: Normal: 0 - 29 Moder ately increased: 30 - 300 Severely increased: >300 PATIENT WAS FASTINGP ERFORMED BY: MICHELLE [facility] Mvfcfn4337 [address] RoadDublin [place] [id number] Creatinine (U) [Mass/Vol] 77.1 mg/dL Normal [facility]; [facility] Work Phone: Comment on above: PATIENT WAS FASTINGP ERFORMED BY: MICHELLE [facility] Gieblu6589 [address] RoadDublin [place] [id number] TSH ([id number])Ordered By: Carbylan BioSurgerye Packaging Materials Inspector on 09-21-2022 TSH Qn 2.120 {uIU/mL} Normal 0.450-4.500 Comprehen sive Internal Medicine; [facility] Work Phone: Comment on above: PATIENT WAS FASTINGP ERFORMED BY: MICHELLE [facility] Bwgynb2363 [address] RoadDublin [place] [id number] URINALYSIS, W/ MICRO (13050) Ordered By: Wool Tamper on 09-21-2022 Appearance (U) Clear Normal Comprehens lesly Internal Medicine; [facility] Work Phone: Comment on above: PATIENT WAS FASTINGP ERFORMED BY: MICHELLE [facility] Maqqgf9183 [address] RoadDublin [place] [id number] Bilirubin Ql (U) Negative Normal Comprehe nsive Internal Medicine; [facility] Work Phone: Comment on above: PATIENT WAS FASTINGP ERFORMED BY: MICHELLE Labkenneth AguayoNthgbx6359 [address] RoadDublin [place] [id number] Color (U) Yellow Normal [facility]; [facility] Work Phone: Comment on above: PATIENT WAS FASTINGP ERFORMED BY: MICHELLE Aguayolin6370 [address] RoadDublin [place] [id number] Glucose Ql (U) Negative Normal Comprehens lesly Internal Medicine; [facility] Work Phone: Comment on above: PATIENT WAS FASTINGP ERFORMED BY: MICHELLE Ocasio6370 [address] RoadDublin [place] [id number] Hemoglobin Ql (U) Negative Normal Compreh ensive Internal Medicine; [facility] Work Phone: Comment on above: PATIENT WAS FASTINGP ERFORMED BY: MICHELLE Ocasio6370 [address] RoadDublin [place] [id number] Ketones Ql (U) Negative Normal Comprehens lesly Internal Medicine; [facility] Work Phone: Comment on above: PATIENT WAS FASTINGP ERFORMED BY: MICHELLE Aguayolin6370 [address] RoadDublin [place] [id number] Leukocyte esterase Test strip Ql (U) Negative Normal [facility]; [facility] Work Phone: Comment on above: PATIENT WAS FASTINGP ERFORMED BY: MICHELLE Ocasio6370 [address] RoadDublin [place] [id number] Microscopic observation LM Nom (Urine sed) See below: Normal [facility]; [facility] Work Phone: Comment on above: Microscopic was etelvina cated and was performed. PATIENT WAS FASTINGP ERFORMED BY: MICHELLE Labcoalba Rscbdm4603 [address] RoadDublin [place] [id number] Nitrite Ql (U) Negative Normal Comprehens lesly Internal Medicine; [facility] Work Phone: Comment on above: PATIENT WAS FASTINGP ERFORMED BY: MICHELEL Labkenneth AguayoGtfzvo4072 [address] RoadDublin [place] [id number] pH (U) 7.5 [pH] Normal 5.0-7.5 [facility]; [facility] Work Phone: Comment on above: PATIENT WAS FASTINGP ERFORMED BY: Red[employer] Dxkugw2777 VigmeUNC Health Blue Ridge [id number] Protein Ql (U) 1+ Abnormal Comprehens lesly Internal Medicine; [facility] Work Phone: Comment on above: PATIENT WAS FASTINGP ERFORMED BY: Redfin Piijxt3303 [address] WantrUNC Health Blue Ridge [id number] Specific gravity (U) [Rel density] 1.014 1 Normal 1.005-1.030 [facility]; [facility] Work Phone: Comment on above: PATIENT WAS FASTINGP ERFORMED BY: Redfin Sduiez9501 Gr[address] WantrUNC Health Blue Ridge [id number] Urobilinogen (U) [Mass/Vol] 0.2 mg/dL Normal 0.2-1.0 [facility]; [facility] Work Phone: Comment on above: PATIENT WAS FASTINGP ERFORMED BY: Redfin Otugfn5850 [facility] [id number] HgA1C , Office (35840)Ordere d By: Beverley Menon on 07-02-2022 HbA1c (Bld) [Mass fraction] 6.1 % Normal 4.6 - 7.1 [facility]; [facility] Work Phone: HEPATITIS C ANTIBODY (48838) Ordered By: Wool Tamper on 06-18-2022 HCV Ab Signal/Cutoff IA [Rel units/Vol] Non-Reactive Normal [facility]; [facility] Work Phone: Comment on above: HCV antibody alone d oes not differentiate between previouslyresolved infection and active infection. Equivocal and ReactiveHCV antibody results should be followed up with an HCV RNA testto support the diagnosis of active HCV infection. PATIENT WAS FASTINGP ERFORMED BY: Redfin Jwwvqw3626 [facility] [id number] LIPID PANEL (26847)Ordered B y: Wool Tamper on 06-18-2022 Cholesterol [Mass/Vol] 185 mg/dL Normal 100-199 [facility]; [facility] Work Phone: Comment on above: PATIENT WAS FASTINGP ERFORMED BY: MICHELLE Labcoalba Xvdzyb[address] [facility] [id number] Cholesterol in HDL [Mass/Vol] 38 mg/dL Abnormal [facility]; [facility] Work Phone: Comment on above: PATIENT WAS FASTINGP ERFORMED BY: MICHELLE [facility] Jatpif[address] [facility] [id number] Triglyceride [Mass/Vol] 177 mg/dL Abnormal 0-149 [facility]; [facility] Work Phone: Comment on above: PATIENT WAS FASTINGP ERFORMED BY: MICHELLE Labcoalba Thjbpm9[address] [facility] [id number] LIPID PANEL (64733) 31 mg/dL Normal 5-40 Compr ensive Internal Medicine; [facility] Work Phone: Comment on above: PATIENT WAS FASTINGP ERFORMED BY: MICHELLE [facility] Ittsmo94[address] [facility] [place] [id number] LIPID PANEL (39068) 116 mg/dL Abnormal 0-99 [facility]; [facility] Work Phone: Comment on above: PATIENT WAS FASTINGP ERFORMED BY: MICHELLE [facility] Cdidzb[address] [facility] [id number] LIPID PANEL (72497) 3.1 {ratio} Normal 0.0-3.2 [facility]ensive [facility]; [facility] Work Phone: Comment on above: LDL/HDL Ratio Men Wo men 1/2 Avg.Risk 1.0 1.5 Avg.Risk 3.6 3.2 2X Avg.Risk 6.2 5.0 3X Avg.Risk 8.0 6.1 PATIENT WAS FASTINGP ERFORMED BY: MICHELLE [facility] Nzwfem[address] [facility] [id number] HgA1C , Office (05082)on HbA1c (Bld) [Mass fraction] 6.0 % Normal 4.6 - 7.1 [facility]; [facility] Work Phone: Vital Signs Date Time Vital Sign Value Performing Clinician Facility 08-25-2024 07:59-0400 Body temperature 98.2 [degF] Dr. Aminta Gage DO Work Phone: [facility] 08-25-2024 07:59-0400 Diastolic blood pressure 76 mm[Hg] Dr. Aminta Gage DO Work Phone: [facility] 08-25-2024 07:59-0400 Heart rate 63 /min Dr. Aminta Gage DO Work Phone: [facility] 08-25-2024 07:59-0400 Respiratory rate 17 /min Dr. Aminta Gage DO Work Phone: [facility] 08-25-2024 07:59-0400 SaO2% (BldA) [Mass fraction] 95 % Dr. Aminta Gage DO Work Phone: [facility] 08-25-2024 07:59-0400 Systolic blood pressure 148 mm[Hg] Dr. Aminta Gage DO Work Phone: [facility] 01-07-2023 09:40-0400 Body height 170.18 cm [facility]; [facility] Work Phone: 01-07-2023 09:40-0400 Body mass index (BMI) [Ratio] 31.21 kg/m2 [facility]; [facility] Work Phone: 01-07-2023 09:40-0400 Body surface area Derived from formula 2.02 m2 [facility]; [facility] Work Phone: 01-07-2023 09:40-0400 Body temperature 97.2 [degF] [facility]; [facility] Work Phone: 01-07-2023 09:40-0400 Body weight 90.38 kg [facility]; [facility] Work Phone: 01-07-2023 09:40-0400 Diastolic blood pressure 70 mm[Hg] [facility]; [facility] Work Phone: Comment on above: Patient Position: Sitting; Cuff Location : Left Arm; Cuff Size: Standard 01-07-2023 09:40-0400 Heart rate 62 /min [facility]; [facility] Work Phone: Comment on above: Pattern: Regular 01-07-2023 09:40-0400 Respiratory rate 18 /min [facility]; [facility] Work Phone: Comment on above: Pattern: Unlabored 01-07-2023 09:40-0400 SaO2% (BldA) [Mass fraction] 95 % [facility]; [facility] Work Phone: Comment on above: Room air 01-07-2023 09:40-0400 Systolic blood pressure 130 mm[Hg] [facility]; [facility] Work Phone: Comment on above: Patient Position: Sitting; Cuff Location : Left Arm; Cuff Size: Standard 11-12-2022 08:45-0400 Body height 170.[address] Eileen Riggs Work Phone: [facility] 11-12-2022 08:45-0400 Body mass index (BMI) [Ratio] 32.1 kg/m2 Dr. Eileen Riggs Work Phone: [facility] 11-12-2022 08:45-0400 Body weight 92.[address] Eileen Riggs Work Phone: [facility] 11-10-2022 11:45-0400 Body temperature 97.7 [degF] Dr. Eileen Riggs Work Phone: [facility] 11-10-2022 11:45-0400 Diastolic blood pressure 95 mm[Hg] Dr. Eileen Riggs Work Phone: [facility] 11-10-2022 11:45-0400 Heart rate 74 /min Dr. Eileen Riggs Work Phone: [facility] 11-10-2022 11:45-0400 Respiratory rate 16 /min Dr. Eileen Riggs Work Phone: [facility] 11-10-2022 11:45-0400 SaO2% (BldA) [Mass fraction] 96 % Dr. Eileen Riggs Work Phone: [place] [facility] 11-10-2022 11:45-0400 Systolic blood pressure 162 mm[Hg] Dr. Eileen Riggs Work Phone: [facility] 10-01-2022 09:03-0400 Body height 170.18 cm Aminta Gage DO Work Phone: [facility] Work Phone: 10-01-2022 09:03-0400 Body mass index (BMI) [Ratio] 32.17 kg/m2 Aminta Too DO Work Phone: [facility]; [facility] Work Phone: 10-01-2022 09:03-0400 Body surface area Derived from formula 2.05 m2 Aminta Too DO Work Phone: [facility]; [facility] Work Phone: 10-01-2022 09:03-0400 Body temperature 96.7 [degF] Aminta Too DO Work Phone: [facility]; [facility] Work Phone: Comment on above: Method: Thermal Scan 10-01-2022 09:03-0400 Body weight 93.16 kg Aminta Johnon DO Work Phone: [facility]; [facility] Work Phone: 07-20-2023 09:03-0400 Diastolic blood pressure 80 mm[Hg] Aminta Johnon DO Work Phone: [facility]; [facility] Work Phone: Comment on above: Patient Position: Sitting; Cuff Location : Left Arm; Cuff Size: Standard 10-01-2022 09:03-0400 Heart rate 72 /min Aminta Johnon DO Work Phone: [facility]; [facility] Work Phone: Comment on above: Pattern: Regular 10-01-2022 09:03-0400 Respiratory rate 16 /min Aminta Gage DO Work Phone: [facility]; [facility] Work Phone: Comment on above: Pattern: Unlabored 10-01-2022 09:03-0400 Systolic blood pressure 122 mm[Hg] Aminta Gage DO Work Phone: [facility]; [facility] Work Phone: Comment on above: Patient Position: Sitting; Cuff Location : Left Arm; Cuff Size: Standard 07-02-2022 08:31-0400 Body height 170.18 cm [facility] Work Phone: 07-02-2022 08:31-0400 Body mass index (BMI) [Ratio] 34.05 kg/m2 [facility]; [facility] Work Phone: 07-02-2022 08:31-0400 Body surface area Derived from formula 2.1 m2 [facility]; [facility] Work Phone: 07-02-2022 08:31-0400 Body temperature 97.3 [degF] [facility]; [facility] Work Phone: 07-02-2022 08:31-0400 Body weight 98.6 kg [facility]; [facility] Work Phone: 07-02-2022 08:31-0400 Diastolic blood pressure 80 mm[Hg] Bever[facility] Menon [facility]; [facility] Work Phone: Comment on above: Patient Position: Sitting; Cuff Location : Left Arm; Cuff Size: Standard 07-02-2022 08:31-0400 Heart rate 72 /min [facility] Work Phone: Comment on above: Pattern: Regular 07-02-2022 08:31-0400 Respiratory rate 18 /min [facility]; [facility] Work Phone: Comment on above: Pattern: Unlabored 07-02-2022 08:31-0400 SaO2% (BldA) [Mass fraction] 95 % [facility]; [facility] Work Phone: Comment on above: Room air 07-02-2022 08:31-0400 Systolic blood pressure 120 mm[Hg] [facility]; [facility] Work Phone: Comment on above: Patient Position: Sitting; Cuff Location : Left Arm; Cuff Size: Standard 03-26-2022 09:18-0500 Body height 170.18 cm [facility]; [facility] Work Phone: 03-26-2022 09:18-0500 Body mass index (BMI) [Ratio] 34.34 kg/m2 [facility]; [facility] Work Phone: 03-26-2022 09:18-0500 Body surface area Derived from formula 2.1 m2 [facility]; [facility] Work Phone: 03-26-2022 09:18-0500 Body temperature 96.9 [degF] [facility]; [facility] Work Phone: 03-26-2022 09:18-0500 Body weight 99.45 kg [facility]; [facility] Work Phone: 03-26-2022 09:18-0500 Diastolic blood pressure 82 mm[Hg] [facility]; [facility] Work Phone: Comment on above: Patient Position: Sitting; Cuff Location : Left Arm; Cuff Size: Standard 03-26-2022 09:18-0500 Heart rate 74 /min [facility]; [facility] Work Phone: Comment on above: Pattern: Regular 03-26-2022 09:18-0500 Respiratory rate 16 /min [facility]; [facility] Work Phone: Comment on above: Pattern: Unlabored 03-26-2022 09:18-0500 SaO2% (BldA) [Mass fraction] 94 % [facility]; [facility] Work Phone: Comment on above: Room air 03-26-2022 09:18-0500 Systolic blood pressure 130 mm[Hg] [facility]; [facility] Work Phone: Comment on above: Patient Position: Sitting; Cuff Location : Left Arm; Cuff Size: Standard Encounters Encounter Date Encounter Type Care Provider Facility Start: 11-29-2024 ambulatory Aminta Gage Facilit y:[facility] Start: 08-25-2024 End: 08-25-2024 Patient encounter procedure Vishal Kebede [facility] Work Phone: Start: 08-25-2024 End: 08-25-[address] Aminta Gage DO Work Phone: [facility] Work Phone: Start: 01-14-2024 End: 01-14-2024 ambulatory Karen Delgadillo Facility:[facility] Start: 06-07-2023 End: 06-07-2023 ambulatory [facility] Work Phone: Start: 06-07-2023 End: 06-07-2023 Patient encounter procedure [facility] Work Phone: Start: 01-07-2023 End: 01-07-2023 Office outpatient visit 25 minutes Aminta Too DO Work Phone: [facility] Start: 11-24-2022 End: 11-24-[address] Eileen Riggs Work Phone: [facility] Work Phone: Start: 11-21-2022 End: 11-21-[address] Eileen Riggs Work Phone: [facility] Work Phone: Start: 11-21-2022 End: 11-21-[address] Eileen Riggs Work Phone: [facility] Work Phone: Start: 11-12-2022 End: 11-12-[address] Eileen Riggs Work Phone: [facility] Work Phone: Start: 11-10-2022 End: 11-10-[address] Eileen Riggs Work Phone: [facility] Work Phone: Start: 11-10-2022 End: 11-10-[address] Eileen Riggs Work Phone: [facility] Work Phone: Start: 10-01-2022 End: 10-01-2022 Lab Order Aminta Too DO Work Phone: [facility] Start: 10-01-2022 End: 10-01-2022 Office outpatient visit 15 minutes Aminta Too DO Work Phone: [facility] Start: 07-02-2022 ambulatory Aminta Too DO [facility] Start: 07-02-2022 End: 07-02-2022 Office outpatient visit 25 minutes Aminta Too DO Work Phone: [facility] Start: 07-02-2022 Review Aminta Uribe n DO Work Phone: [facility] Start: 06-02-2022 End: 06-02-2022 ambulatory [facility] Work Phone: Start: 06-02-2022 End: 06-02-2022 Patient encounter procedure [facility] Start: 2022 End: 2022 Annotation/Addendum Aminta Gage DO Work Phone: [facility] Start: 04-07-2022 End: 04-07-2022 ambulatory [facility] Work Phone: Start: 04-07-2022 End: 04-07-2022 Patient encounter procedure [facility] Start: 03-26-2022 End: 03-26-2022 Patient encounter procedure Aminta Gage DO Work Phone: [facility] Start: 03-26-2022 End: 03-26-2022 Patient encounter status Aminta Gage DO Work Phone: [facility]; [facility] Work Phone: Patient encounter status Imeldajennie Sinan MACIAS [facility]; [facility] Work Phone: Patient encounter status Afsaneh Moran MA [facility]; [facility] Work Phone: Patient encounter status Oleg Hardin LPN [facility]; [facility] Work Phone: Procedures Date Procedure Procedure Detail Performing Clinician Start: 06-07-2023 Screening mammography Start: 12-14-2022 End: 12-14-2022 Orthopedic Visit Report Procedure Note: See Note; NOTES: [facility] [address] [place] [id number] OFFICE VISIT Date of Service: 12/14/22 MR#: [id number] Acct: [id number] Name: RAKEL MARRERO Rep #: [id number] : 1955 Provider: Dr. Pedro baker DO Age/Sex: 67/F Location: [facility] Status: Signed Intake Vital Signs 11/12/22 08:45 Height 5 ft 7 in Weight: 205 lb BMI 32.1 Intake Visit Reasons: LEFT KNEE Chief Complaint: LT knee pain Allergies Antihistamines - Alkylamine Allergy (Mild, Verified 11/12/22 08:46) Unknown Sulfa (Sulfonamide Antibiotics) Allergy (Mild, Verified 11/12/22 08:46) Other wool Allergy (Mild, Verified 11/12/22 08:46) Other Medications citalopram 20 mg tablet 30 mg PO DAILY 01/16/19 [History Confirmed 12/14/22] multivitamin 1 tab PO DAILY 01/16/19 [History Confirmed 12/14/22] lisinopril 10 mg tablet mg PO 11/12/22 [History Confirmed 12/14/22] rosuvastatin 10 mg tablet mg PO 11/12/22 [History Confirmed 12/14/22] acetaminophen 500 mg tablet (Tylenol Extra Strength) 1,000 mg PO Q6H PRN 12/14/22 [History Confirmed 12/14/22] etodolac 500 mg tablet 500 mg PO BID #40 tabs 12/14/22 [Rx Confirmed 12/14/22] PFSH Medical History Bleeding hemorrhoids Cellulitis, neck Depression Hemorrhoids Internal derangement of left knee Strain of left knee Surgical History H/O thumb surgery S/p bilateral carpal tunnel release S/P hemorrhoidectomy S/P tubal ligation Status post colonoscopy ( 01/31/19) Family History Mother Heart disease Diabetes Father Cancer Social History Smoking Status: Never smoker alcohol intake: never HPI LEFT KNEE Details: Parts of this documentation were recorded by a scribe, this documentation accurately reflects the service provided and the decisions made by me, Dr. Pedro Kern DO 12/14/22 [id number]. RAKEL MARRERO is a 67 year old F here today for left knee pain. Referred by Yvonne Guerin. Patient has had left knee pain since Middle of 10/2022 she was playing ping pong with her grandson and planted her left foot and the rest of her body pivoted and she had pain, however was not too bad until 3 weeks later . She saw Yvonne on 11/12/22. She has tried knee bracing, medrol dose pack and Advil which hasn't been helpful. She has anterior medial knee pain. Peripatellar pain, superior, medial and inferior to patella but not lateral. She does have crepitation. Denies any mechanical knee pain. Denies any past surgery or injections of the left knee. She has had xrays and an MRI of the knee as well. Ortho Exam General General: Yes no acute distress Neurologic: Yes alert and Yes oriented x3 Psychologic: Yes reasonable and appropriate Left Knee Skin/Wound: No ecchymosis, No erythema and No swelling Homans Sign: No 1+: Effusion (faint) Knee ROM: Yes ROM-Extension -20 to 0 and No ROM-Flexion 0-140 (120) Examination: Yes med jt line tenderness, Yes Lat jt line tenderness, No Crepitus, Yes Mohit's Test and No TTP Pes Anserine Stability: NML: Anterior Drawer, NML: Posterior Drawer, NML: Valgus 30 and NML: Varus 30 Patella Grind: No KNEE: Pain with medial Demario without click negative lateral Mohit Office Procedures Ortho Injections Injections Yes Knee Left Details: Obtained consent for injection. Under sterile conditions, injected the patient's left knee with 1.5cc bupivacaine, 1.5cc lidocaine and 1cc depomedrol. The patient tolerated the injection well without any noted complication. Patient should call our office if redness develops, pain worsens or if they have any concerns. Office Meds Depo-Medrol 40 mg/mL suspension for injection Performing Provider: Pedro Kern DO Performing Location: [facility] Administered by: Pedro Kern DO on 12/14/22 09:26 Dose Route Admin Location Dispensed Lot Number Expiration Date NDC Man ufacturer 40 mg intra-articular left knee 1 mL [id number] 06/13/24 4725-8067-07 [facility] Supplemental Info 11/21/2022 MRI left knee: Mild retropatellar chondromalacia, myxoid degeneration without discrete tear posterior horn medial meniscus inferior oblique tear posterior body of the medial meniscus, complex tear involving the body and anterior horn lateral meniscus. Medium joint effusion. 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 Personally reviewed x-rays. There is no obvious fracture, dislocation, or lucency noted. Personally reviewed MRI fo the left knee. Educated that she does have OA of the left knee and she also has possible small tear of the medial meniscus and a tear of the anterior horn and body lateral meniscus. She is not really having any lateral sided symptoms , and her symptoms really did not become significant till about 3 weeks after the injury therefore I think it is most likely inflammation that she is dealing with right now , and would likely benefit from intra-articular steroid injection and oral NSAID prior to surgical intervention, although I did offer her the option of arthroscopy. Patient would like left knee steroid injection and oral NSAID and see how her symptoms responds for the next 2 weeks. If not improved we can always move forward with knee arthroscopy. Follow up as needed or sooner if pain, swelling, numbness or associated symptoms, or concerns develop. All questions answered. Patient in agreement of plan. 12/14/22 1009 <Electronically signed by Pedro Kern DO> Date Pedro Kern DO Cosigner Signature: Date (if applicable) CC: Aminta Gage DO Work Phone: Start: 11-24-2022 End: 11-25-2022 Orthopedic Visit Report Procedure Note: See Note; NOTES: [facility] [address] [place] [address] [address] [place] [address] OFFICE VISIT Date of Service: 11/24/22 MR#: [id number] Acct: [id number] Name: RAKEL MARRERO Rep #: [id number] : 1955 Provider: ERNST Altamirano Age/Sex: 67/F Location: [facility] Status: Signed Intake Vital Signs 11/12/22 08:45 Height 5 ft 7 in Intake Visit Reasons: left knee Chief Complaint: LT knee pain Accompanied by: Is patient in pain?: No Allergies Antihistamines - Alkylamine Allergy (Mild, Verified 11/12/22 08:46) Unknown Sulfa (Sulfonamide Antibiotics) Allergy (Mild, Verified 11/12/22 08:46) Other wool Allergy (Mild, Verified 11/12/22 08:46) Other Medications citalopram 20 mg tablet 30 mg PO DAILY 01/16/19 [History Confirmed 11/24/22] multivitamin 1 tab PO DAILY 01/16/19 [History Confirmed 11/24/22] metronidazole 250 mg tablet 250 mg PO TID #15 tabs 04/24/19 [Rx Confirmed 11/24/22] doxycycline monohydrate 100 mg capsule 100 mg PO BID #20 caps 11/10/22 [Rx Confirmed 11/24/22] prednisone 10 mg tablet 10 mg PO DIRECTED #30 tabs 11/10/22 [Rx Confirmed 11/24/22] lisinopril 10 mg tablet mg PO 11/12/22 [History Confirmed 11/24/22] rosuvastatin 10 mg tablet mg PO 11/12/22 [History Confirmed 11/24/22] PFSH Medical History Bleeding hemorrhoids Cellulitis, neck Depression Hemorrhoids Internal derangement of left knee Strain of left knee Surgical History H/O thumb surgery S/p bilateral carpal tunnel release S/P hemorrhoidectomy S/P tubal ligation Status post colonoscopy ( 01/31/19) Family History Mother Heart disease Diabetes Father Cancer Social History Smoking Status: Never smoker alcohol intake: never HPI left knee Details: Parts of this documentation were recorded by a scribe, this documentation accurately reflects the service provided and the decisions made by me, ERNST Altamirano 11/24/22 08. RAKEL MARRERO is a 67 year old F here today for F/U of left knee MRI. She states that her pain has improved significantly. She still has lateral knee pain. She is not using any assistive devices to get around today. She states however she does need a brace because when she pivots, turns or even sometimes when she is walking her knee starts to give out and it does feel unstable. She finished her course of prednisone and has been taking Tylenol and Advil as needed. She has been resting, icing and elevating. She cancelled her trip to [facility]. ROS Const Denies chills and Denies fever(s) Card Denies dyspnea Resp Denies dyspnea GI Denies nausea and Denies vomiting Musc Reports abnormal gait (Ambulating with a knee brace), Reports arthralgias, Reports joint swelling, Denies limited range of motion, Denies numbness and Denies tingling Skin/Breast Denies rash Neuro Yes abnormal gait (Ambulating with a knee brace), No numbness and No tingling Ortho Exam General General: Yes no acute distress Neurologic: Yes alert and Yes oriented x3 Psychologic: Yes reasonable and appropriate Left Knee Skin/Wound: No ecchymosis, No erythema and No swelling Contralateral Normal: Yes Homans Sign: No Knee ROM: Yes ROM-Extension -20 to 0 and Yes ROM-Flexion 0-140 (100 degrees) Examination: Yes med jt line tenderness, Yes Lat jt line tenderness, Yes Mohit's Test, No TTP Patellar tendon, No TTP Pes Anserine and No Illiotibial band tenderness Stability: NML: Anterior Drawer, NML: Posterior Drawer, NML: Valgus 30 and NML: Varus 30 KNEE: Upon inspection of the left knee there is no evident erythema, ecchymosis or open areas. No signs of infection. 100 degrees of flexion and full extension. Tenderness palpation over medial and lateral joint lines, greater over the lateral joint line. No laxity noted with stress of the ACL, PCL, LCL or MCL. Intact sensation to light touch throughout left lower extremity. Negative Homans. Soft compartments. Coding Level of Care Code Off vis,est,level 2 Diagnoses Tear of meniscus of left knee S83.207A Assessment and Plan Assessment and Plan (1) Tear of meniscus of left knee: Plan: Patient presents to the office today for review of left knee MRI. She states she has been doing better since she was seen last, but still has some instability. Discussed the complex tear of the lateral meniscus, degenerative changes of the medial meniscus with an oblique tear at the posterior body, mild chondromalacia of the patella, and joint effusion. Discussed treatment options. She would like to meet with Dr. Kern to discuss the surgical options further. She is more inclined to have surgery versus PT and injection. She will continue with conservative measures. She was dispensed a hinged knee brace today for support. She will follow up with Dr. Kern or sooner if pain, swelling, numbness or other signs or symptoms develop. The patient's questions were answered. She is in agreement with the plan. 11/25/22907 <Electronically signed by Yvonne DUKES> Date Yvonne DUKES Cosigner Signature: Date (if applicable) CC: Aminta Gage DO Work Phone: Start: 11-21-2022 MRI of joint of lower extremity Dr. Eileen Riggs Work Phone: Start: 11-21-2022 End: 11-21-2022 Lower Ext Joint Only (Routine) Procedure Note: See Note; NOTES: [facility] [address] [place] [address] Lower Ext Joint Only (Routine) MR#: [id number] Acct: [id number] Name: RAKEL MARRERO Rep #: [id number] : 1955 F 67 From: Rakesh reyes DO PCP: Dr. Aminta Gage, DO Status: REG CLI Study: Lower Ext Joint Only (Routine) Date of Exam: 0 11/21/22 Exam# [id number] Ordering Dr: Yvonne Guerin EXAM: MR LEFT LOWER EXTREMITY WITHOUT INTRAVENOUS CONTRAST, KNEE CLINICAL INDICATION: left knee pain TECHNIQUE: Multiplanar and multisequence MR images of the left knee without intravenous contrast. COMPARISON: Left knee radiographs, 11/10/2022. 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 Patellar enthesopathy. EXTENSOR MECHANISM: No significant abnormality. 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 LATERAL MENISCUS: Complex tear involving the body and anterior horn of the lateral meniscus. MEDIAL CAPSULE/SUPPORTING STRUCTURES: No significant abnormality. Intact. LATERAL CAPSULE/SUPPORTING STRUCTURES: No significant abnormality. Lateral collateral ligamentous complex, inclusive of the popliteal tendon, are intact. ANTERIOR CRUCIATE LIGAMENT: No significant abnormality. Intact. POSTERIOR CRUCIATE LIGAMENT: No significant abnormality. Intact. MUSCLES: No significant abnormality. CARTILAGE: Weightbearing articular cartilage is intact. Chondromalacia of the retropatellar articular cartilage. FLUID: There is a medium-sized joint effusion. MRI/Lower Ext Joint Only (Routine) IMPRESSION: 1. Complex tear involving the body and anterior horn of the lateral meniscus. 2. There is a medium-sized joint effusion. 3. 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 4. 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 Electronically Signed: Rakesh Foster DO at 8:46 EDT , CC: Dr. Aminta Gage DO; ERNST Altamirano Organ Tuner: Signed Aminta Gage DO Work Phone: Start: 11-10-[address] knee [address] Eileen Riggs Work Phone: Start: 06-02-2022 Screening mammography Start: 06-02-2022 End: 06-02-2022 SCRN MAMM (CAD)W/TRAVIS BILAT Procedure Note: See Note; NOTES: [facility] [address] [place] [address] SCRN MAMM (CAD)W/TRAVIS BILAT MR#: [id number] Acct: [id number] Name: RAKEL MARRERO Rep #: [id number] : 1955 F 67 From: Damien hoover MD PCP: Dr. Eileen Riggs MD Status: REG CLI Study: SCRN MAMM (CAD)W/TRAVIS BILAT Date of Exam: 05/14 04/06 Exam# [id number] Ordering Dr: Aminta Gage DO MAMMOGRAPHY - BILATERAL SCREENING REASON FOR EXAM: Female, 67 years old. Routine annual screening examination. PERTINENT HISTORY: Non-contributory. TECHNIQUE: Digital bilateral breast travis (3D mammographic acquisition) in the CC and MLO projections. 2-D mediolateral oblique (MLO) and craniocaudad (CC) views of both breasts were obtained. CAD: Full Field Digital Mammography with Computer Added Detection was performed. COMPARISON: Comparison is made with prior study dated April 30, 2021 and April 12, 2020. FINDINGS: Breast Composition: The breasts are heterogeneously dense, which may obscure small masses. There are no dominant masses or suspicious calcifications. No other significant abnormalities are identified. There has been no significant change since the prior study. BI/SCRN MAMM (CAD)W/TRAVIS BILAT IMPRESSION: Stable bilateral screening mammogram. Yearly follow-up mammogram recommended. (A) ASSESSMENT CATEGORY: BIRADS Category 1: Negative. A letter regarding these results will be sent to the patient by the facility within 30 days. Approximately 10% of breast cancers are not detected by mammography. A normal mammogram should not delay biopsy of a clinically suspicious abnormality. [id number] Electronically Signed: Damien Hedrick MD at 10:42 EDT Reading Location ID and State: [facility] / [place] , Service support , CC: Dr. Eileen Riggs MD; Dr. Aminta Gage DO Organ Tuner: Signed Aminta Gage DO Work Phone: Start: 04-07-2022 End: 04-08-2022 Dexa Bone Density Study Procedure Note: See Note; NOTES: [facility] Imaging Services [address] [place] [id number] Dexa Bone Density Study MR#: [id number] Acct: [id number] Name: RAKEL MARRERO Rep #: [id number] : 1955 F 66 From: Damien hoover MD PCP: Dr. Eileen Riggs MD Status: [facility] Study: Dexa Bone Density Study Date of Exam: 04/07/22 Exam# [id number] Ordering Dr: Aminta Gage DO STUDY: DUAL ENERGY X-RAY ABSORPTIOMETRY / DXA REASON FOR EXAM: Female, 66 years old. [id number] TECHNIQUE: Bone Mineral Density (BMD) measurements of lumbar spine and bilateral hips were obtained. COMPARISON: None. FINDINGS: Lumbar Spine (L1-L4): g/cm2 (0.988) / T-score (-0.5) / Z-score (1.2) Findings are suggestive of normal bone density with a low fracture risk. Left Femur Total: g/cm2 (1.083) / T-score (1.2) / Z-score (2.4) Left Femoral Neck: g/cm2 (0.904) / T-score (0.5) / Z-score (2.0) Right Femur Total: g/cm2 (1.123) / T-score (1.5) / Z-score (2.7) Right Femoral Neck: g/cm2 (0.929) / T-score (0.7) / Z-score (2.2) BD/Dexa Bone Density Study IMPRESSION: The patient is considered normal as outlined below according to World [employer] Organization (WHO) criteria with a low fracture risk. Reference Information: The T-score is the number of standard deviations above or below the standard which is normal for young adults at their peak bone mineral density. The World Health Organization (WHO) interprets the T-scores as follows: Above -1 Normal bone density Between -1 and -2.5 Osteopenia Equal to / or below -2.5 Osteoporosis As a practical clinical guideline, osteopenia may be graded as follows: Mild -1 through -1.5 Moderate -1.6 through -2.0 Severe -2.1 through -2.4 The Z-score is the number of standard deviations above or below age-matched controls. A Z-score of less than -1.5 would be considered abnormal. References: 1. NIH Osteoporosis and Related Bone Diseases www osteo.org 2. International Society for Clinical Densitometry www iscd.org 3. National Osteoporosis Foundation www nof.org Electronically Signed: Damien Hedrick MD at 8:37 EST , CC: Dr. Eileen Riggs MD; Dr. Aminta Gage DO Organ Tuner: Signed Aminta Gage DO Work Phone: Start: 04-07-2022 Dual energy X-ray absorptiometry Start: 2019 End: 2019 Hemrroidectomy Beverley Sinan [facility] Plan of Treatment Date Care Activity Detail Author Start: 01-07-2023 Procedure Education Eprescribed prescriptions (G8553) [facility] Work Phone: Start: 01-07-2023 Provider Instructions for Treatment [facility] Work Phone: Start: 01-07-2023 Assay of thyroid stimulating hormone tsh TSH (96823) [facility]; [facility] Work Phone: Start: 01-07-2023 Urnls dip stick/tablet reagent auto microscopy URINALYSIS, W/ MICRO (28897) [facility]; [facility] Work Phone: Start: 01-07-2023 Urine albumin quantitative MICROALBUMIN: CREATININE RATIO (15704) AND (91596) [facility]; [facility] Work Phone: Start: 01-07-2023 Comprehensive metabolic panel METABOLIC PANEL, COMPREHENSIVE (05328) [facility]; [facility] Work Phone: Start: 01-07-2023 Lipid panel LIPID PANEL (05260) [facility] Work Phone: Start: 01-07-2023 Blood count complete auto&auto difrntl wbc CBC W/AUTO DIFF WBC (23433) [facility]; [facility] Work Phone: Start: 11-10-2022 Patient referral [facility] Work Phone: Start: 10-01-2022 Procedure Education Eprescribed prescriptions (G8553) [facility]; [facility] Work Phone: Start: 10-01-2022 Provider Instructions for Treatment [facility]; [facility] Work Phone: Start: 10-01-2022 Hepatic function panel HEPATIC FUNCTION PANEL (30732) [facility]; [facility] Work Phone: Start: 10-01-2022 Lipid panel LIPID PANEL (69751) [facility] Work Phone: Start: 07-02-2022 Procedure Education Eprescribed prescriptions (G8553) [facility]; [facility] Work Phone: Start: 07-02-2022 Provider Instructions for Treatment [facility]; [facility] Work Phone: Start: 07-02-2022 Assay of thyroid stimulating hormone tsh TSH (58566) [facility]; [facility] Work Phone: Start: 07-02-2022 Urnls dip stick/tablet reagent auto microscopy URINALYSIS, W/ MICRO (77187) [facility]; [facility] Work Phone: Start: 07-02-2022 Urine albumin quantitative MICROALBUMIN: CREATININE RATIO (23300) AND (36102) [facility]; [facility] Work Phone: Start: 07-02-2022 Comprehensive metabolic panel METABOLIC PANEL, COMPREHENSIVE (81618) [facility]; [facility] Work Phone: Start: 07-02-2022 Lipid panel LIPID PANEL (61586) [facility] Work Phone: Start: 07-02-2022 Blood count complete auto&auto difrntl wbc CBC W/AUTO DIFF WBC (13715) [facility]; [facility] Work Phone: Start: 07-02-2022 Gluc bld gluc mntr dev cleared fda spec home use Blood Glucose , Office (02528) [facility]; [facility] Work Phone: Start: 07-02-2022 Hemoglobin glycosylated a1c HgA1C , Office (62313) [facility]; [facility] Work Phone: Start: 03-26-2022 Procedure Education Eprescribed prescriptions (G8553) [facility]; [facility] Work Phone: Start: 03-26-2022 Provider Instructions for Treatment [facility]; [facility] Work Phone: Start: 03-26-2022 Hepatitis c antibody HEPATITIS C ANTIBODY (11056) [facility]; [facility] Work Phone: Start: 03-26-2022 Lipid panel LIPID PANEL (66807) [facility] Work Phone: MR Lower Extremity Joint [facility] Patient referral [facility] Work Phone: [facility] Work Phone: [facility] Work Phone: [facility] Work Phone: [facility] Work Phone: [facility] Work Phone: Immunizations Immunization Date Immunization Notes Care Provider [facility] 06-18-2020 Covid (Pfizer) [facility] 05-28-2020 Covid (Pfizer) [facility] Payers Date Payer Category Payer Medicare [id number] 2023 Self-pay [id number] 2022 Medicare [id number] 2022 Private Health Insurance [id number] 2016 Unknown [facility] [id number] 1955 Unknown [id number] Medicare MEDICARE PART A B [id number] Unknown Unknown ANTHEM [id number] Unknown [employer] [id number] Unknown [employer] [place] [id number] Unknown [id number] Unknown [id number] Unknown [id number] Social History Date Type Detail Facility Non Drinker/No Alcohol Use Non Drinker/No Alcohol Use [facility]; [facility] Work Phone: Start: 01-28-2021 End: 12-14-2022 Tobacco smoking status [facility] Unknown if ever smoked [facility] Start: 01-30-2019 Non-smoker [facility] Start: 1955 Sex Assigned At Female W [facility] Start: 12-14-2022 Tobacco smoking status NHIS Never smoked tobacco (finding) [facility] Evaluation note Note Date & Type Note Facility Evaluation note No assessment information availa ble [facility] Work Phone: Evaluation note Note Date & Type Note Facility Evaluation note Diagnosis Onset Date Cellulitis, neck acute Internal derangement of left knee acute Strain of left knee acute Internal derangement of left knee acute [facility] Work Phone: Evaluation note Note Date & Type Note Facility Evaluation note Diagnosis Onset Date Cellulitis, neck acute Internal derangement of left knee acute Strain of left knee acute Internal derangement of left knee acute Tear of meniscus of left knee noneactive [facility] Work Phone: Instructions Note Date & Type Note Facility Instructions Name Patient Instructions Indication:BMI 34.0-34.9,adult Start: 3 Instruction Type:Provider Instructions for Treatment How to Access Health Information Online using Patient Portal and 3rd [employer] Apps Indication:BMI 34.0-34.9,adult Start: 3 Instruction Type:Patient Education [facility]; [facility] Work Phone: Instructions Note Date & Type Note Facility Instructions Name Patient Instructions Indication:BMI 34.0-34.9,adult Start: 3 Instruction Type:Provider Instructions for Treatment How to Access Health Information Online using Patient Portal and 3rd [employer] Apps Indication:BMI 34.0-34.9,adult Start: 3 Instruction Type:Patient Education [facility]; [facility] Work Phone: Instructions Note Date & Type Note Facility Instructions Name Patient Instructions Indication:BMI 34.0-34.9,adult Start: 3 Instruction Type:Provider Instructions for Treatment How to Access Health Information Online using Patient Portal and 3rd [employer] Apps Indication:BMI 34.0-34.9,adult Start: 3 Instruction Type:Patient Education Patient Instructions Indication:BMI 34.0-34.9,adult Start: 3 Instruction Type:Provider Instructions for Treatment How to Access Health Information Online using Patient Portal and 3rd [employer] Apps Indication:BMI 34.0-34.9,adult Start: 3 Instruction Type:Patient Education [facility]; [facility] Work Phone: Instructions Note Date & Type Note Facility Instructions Name Patient Instructions Indication:BMI 34.0-34.9,adult Start: 3 Instruction Type:Provider Instructions for Treatment How to Access Health Information Online using Patient Portal and 3rd [employer] Apps Indication:BMI 34.0-34.9,adult Start: 3 Instruction Type:Patient Education Patient Instructions Indication:BMI 34.0-34.9,adult Start: 3 Instruction Type:Provider Instructions for Treatment How to Access Health Information Online using Patient Portal and 3rd [employer] Apps Indication:BMI 34.0-34.9,adult Start: 3 Instruction Type:Patient Education [facility]; [facility] Work Phone: Instructions Note Date & Type Note Facility Instructions Name How to Access Health Information Online using Patient Portal and 3rd [employer] Apps Indication:Nonsmoker Start: 3 Instruction Type:Patient Education Patient Instructions Indication:Nonsmoker Start: 3 Instruction Type:Provider Instructions for Treatment Patient Instructions Indication:BMI 34.0-34.9,adult Start: 3 Instruction Type:Provider Instructions for Treatment How to Access Health Information Online using Patient Portal and 3rd [employer] Apps Indication:BMI 34.0-34.9,adult Start: 3 Instruction Type:Patient Education Patient Instructions Indication:BMI 34.0-34.9,adult Start: 3 Instruction Type:Provider Instructions for Treatment How to Access Health Information Online using Patient Portal and 3rd [employer] Party Apps Indication:BMI 34.0-34.9,adult Start: 3 Instruction Type:Patient Education [facility]; [facility] Work Phone: Instructions Note Date & Type Note Facility Instructions Name Patient Instructions Indication:Nonsmoker Start: 3 Instruction Type:Provider Instructions for Treatment How to Access Health Information Online using Patient Portal and 3rd [employer] Apps Indication:Nonsmoker Start: 3 Instruction Type:Patient Education How to Access Health Information Online using Patient Portal and 3rd [employer] Apps Indication:Nonsmoker Start: 3 Instruction Type:Patient Education Patient Instructions Indication:Nonsmoker Start: 3 Instruction Type:Provider Instructions for Treatment Patient Instructions Indication:BMI 34.0-34.9,adult Start: 3 Instruction Type:Provider Instructions for Treatment How to Access Health Information Online using Patient Portal and 3rd [employer] Apps Indication:BMI 34.0-34.9,adult Start: 3 Instruction Type:Patient Education Patient Instructions Indication:BMI 34.0-34.9,adult Start: 3 Instruction Type:Provider Instructions for Treatment How to Access Health Information Online using Patient Portal and 3rd [employer] Apps Indication:BMI 34.0-34.9,adult Start: 3 Instruction Type:Patient Education [facility]; [facility] Work Phone: Reason for referral (narrative) Note Date & Type Note Facility Reason for referral (narrative) No reason for referral information available [facility] Work Phone: Family History No Family History Records FoundUnknown Family Member Name Dates Details Father Comments:Bladder Cancer Status:Active Mother Comments:Diabetes Status:Active Sister 1 Comments:Osteprosis, Status:Active Sister 2 Comments:Cataract Surgery Status:Active Unknown Family Member Name Dates Details Father Comments:Bladder Cancer Status:Active Mother Comments:Diabetes Status:Active Sister 1 Comments:Osteprosis, Status:Active Sister 2 Comments:Cataract Surgery Status:Active Relationship Condition Age at Onset Recorded Date/T emily mother Cardiac disease Unknown father Malignant neoplasm Unknown Unknown Family Member Name Dates Details Father Comments:Bladder Cancer Status:Active Mother Comments:Diabetes Status:Active Sister 1 Comments:Osteprosis, Status:Active Sister 2 Comments:Cataract Surgery Status:Active Unknown Family Member Name Dates Details Father Comments:Bladder Cancer Status:Active Mother Comments:Diabetes Status:Active Sister 1 Comments:Osteprosis, Status:Active Sister 2 Comments:Cataract Surgery Status:Active Unknown Family Member Name Dates Details Father Comments:Bladder Cancer Status:Active Mother Comments:Diabetes Status:Active Sister 1 Comments:Osteprosis, Status:Active Sister 2 Comments:Cataract Surgery Status:Active Relationship Condition Age at Onset Recorded Date/T emliy mother Cardiac disease Unknown Diabetes mellitus Unknown father Malignant neoplasm Unknown Unknown Family Member Name Dates Details Father Comments:Bladder Cancer Status:Active Mother Comments:Diabetes Status:Active Sister 1 Comments:Osteprosis, Status:Active Sister 2 Comments:Cataract Surgery Status:Active Chief Complaint and Reason for Visit Chief Complaint POSTMENOPAUSAL Chief Complaint POSTMENOPAUSAL SCREENING Chief Complaint LT KNEE INJURY EORDER- LEFT KNEE- injury LEFT KNEE Reason for Visit Cellulitis, neck Internal derangement of left knee Strain of left knee Internal derangement of left knee Chief Complaint LT KNEE INJURY EORDER- LEFT KNEE- injury LEFT KNEE M23.92 Unspec internal derangement of left knee left knee Reason for Visit Cellulitis, neck Internal derangement of left knee Strain of left knee Internal derangement of left knee Tear of meniscus of left knee Chief Complaint SCREENING Chief Complaint Admit Date cough August 25, 2024 7:50 am Advance Directives No Advanced Directives Records Found Advance Directive Response Recorded Date/ Time Living Will Yes January 28, 3:51pm Power of Nursing Assistant Yes January 28, 2021 3:51pm Advance Directive Response Recorded Date/ Time Living Will Yes January 28 4:51pm Power of Nursing Assistant Yes January 28, 2021 4:51pm Advance Directive Response Recorded Date/ Time Living Will Yes November 10 12:25pm Power of Nursing Assistant Yes November 10 12:25pm Summary Purpose Additional Source Comments Care Teams (unrecognized sec tion and content) Team Status: Active Member Role Status Dates Dr. Eileen Riggs MD Family Provider Active Dr. Eileen Riggs MD Primary Care Provider Active Team Status: Inactive Member Role Status Dates Dr. Eileen Riggs MD Primary Care Provider Active Dr. Aminta Gage DO Attending Provider Active Team Status: Inactive Member Role Status Dates Dr. Eileen Riggs MD Primary Care Provider Active Dr. Aminta Gage DO Attending Provider, Referring Provider Active Team Status: Inactive Member Role Status Dates Dr. Eileen Riggs MD Primary Care Provider, Referrin g Provider Active Michele DUKES PA Attending Provider Active Team Status: Inactive Member Role Status Dates Dr. Eileen Riggs MD Primary Care Provider, Referrin g Provider Active Yvonne DUKES PA Attending Provider Active Team Status: Inactive Member Role Status Dates Dr. Eileen Riggs MD Primary Care Provider Active Michele DUKES PA Attending Provider, Referring Pr ovider Active Team Status: Active Member Role Status Dates Dr. Eileen Riggs MD Family Provider Active Dr. Aminta Gage DO Primary Care Provider Active Team Status: Inactive Member Role Status Dates Dr. Aminta Gage DO Primary Care Provider, Referr ing Provider Active Yvonne DUKES PA Attending Provider Active Team Status: Inactive Member Role Status Dates Yvonne DUKES PA Attending Provider, Referring Provi oli Active Dr. Aminta Gage DO Primary Care Provider Active Team Status: Inactive Member Role Status Dates Dr. Aminta Gage DO Primary Care Pr ovider, Attending Provider, Referring Provider Active Team Status: Inactive Member Role Status Dates Dr. Aminta Gage DO Primary Care Provider Active Start: August 25, 2024 End: August 25, 2024 Dr. Aminta Too , DO Referring Provider Active Start: August 25, 2024 End: August 25, 2024 Vishal DUKES, PA Attending Provider Active Sta rt: August 25, 2024 End: August 25, 2024 Goals (unrecognized section and content) Goals may be documented in a n alternate sectionGoals may be documented in an alternate sectionGoals may be documented in an alternate sectionGoals may be documented in an alternate sectionGoals may be documented in an alternate sectionGoals may be documented in an alternate section INFORMATION SOURCE (unrecogn ized section and content) DATE CREATED AUTHOR 07/02/2022 [facility] DATE CREATED AUTHOR AUTHOR'S ORGANIZ ATION 11/26/[address] [facility] FOR RECORDS PERTAINING TO PATIENTS WHO ARE OR HAVE BEEN ENROLLED IN A CHEMICAL DEPENDENCY/SUBSTANCEABUSE PROGRAM, SOME INFORMATION MAY BE OMITTED. This clinical summary was aggregated from multiple sources. Caution should be exercised in using it in the provision of clinical care. This summary normalizes information from multiple sources, and as a consequence, information in this document may materially change the coding, format and clinical context of patient data. In addition, data may be omitted in some cases. CLINICAL DECISIONS SHOULD BE BASED ON THE PRIMARY CLINICAL RECORDS. [employer] provides no warranty or guarantee of the accuracy or completeness of information in this document.
== END | disposition home or self-care (01) ==
LOC: OPBD 13:54
PROVIDERS: PCP Internal Medicine; Referring Provider Internal Medicine; Visit Provider Internal Medicine
DX: Z12.31 Encounter for screening mammogram for malignant neoplasm of breast (principal); Z78.0 Asymptomatic menopausal state
CPT/HCPCS: 77063; 77067; 77080

== ENCOUNTER → 2024-12-06 | Outpatient (CLI) | payer MEDICARE, SELFPAY | END | disposition home or self-care (01) | PROVIDERS: PCP Internal Medicine; Referring Provider Internal Medicine; Visit Provider Internal Medicine | DX: R05.3 Chronic cough (principal) | CPT/HCPCS: 94060; 94726; 94729 ==